=== PATIENT | female | born 1975 | race Caucasian/White ===

== ENCOUNTER → 2019-08-09 11:52 | Outpatient (BNVA) | payer MEDICAID, SELFPAY | PROVIDERS: Family Provider Nurse Practitioner Family; PCP Specialist; Visit Provider Social Worker Clinical | DX: F43.12 Post-traumatic stress disorder, chronic (principal); F33.2 Major depressive disorder, recurrent severe without psychotic features | CPT/HCPCS: 90834 ==

== ENCOUNTER → 2019-09-06 14:25 | Outpatient (BNVA) | payer MEDICAID, SELFPAY | PROVIDERS: Family Provider Specialist; PCP Specialist; Visit Provider Social Worker Clinical | DX: F43.12 Post-traumatic stress disorder, chronic (principal); F33.2 Major depressive disorder, recurrent severe without psychotic features | CPT/HCPCS: 90834 ==

== ENCOUNTER → 2019-11-07 12:30 | Outpatient (BNVA) | payer MEDICAID, SELFPAY | PROVIDERS: Family Provider Specialist; PCP Specialist; Visit Provider Psychiatry & Neurology Psychiatry | DX: F43.12 Post-traumatic stress disorder, chronic (principal); F33.2 Major depressive disorder, recurrent severe without psychotic features; F60.9 Personality disorder, unspecified; F17.200 Nicotine dependence, unspecified, uncomplicated | CPT/HCPCS: 99213 ==

== ENCOUNTER → 2019-12-12 08:38 | Outpatient (BNVA) | payer MEDICAID, SELFPAY | PROVIDERS: Family Provider Specialist; PCP Specialist; Visit Provider Psychiatry & Neurology Psychiatry | DX: F43.12 Post-traumatic stress disorder, chronic (principal); F33.2 Major depressive disorder, recurrent severe without psychotic features; F60.9 Personality disorder, unspecified; F17.200 Nicotine dependence, unspecified, uncomplicated | CPT/HCPCS: 99213 ==

== ENCOUNTER → 2020-01-29 09:36 | Outpatient (BNVA) | payer MEDICAID, SELFPAY | PROVIDERS: Family Provider Specialist; PCP Specialist; Visit Provider Nurse Practitioner Family | DX: Z13.6 Encounter for screening for cardiovascular disorders (principal); Z13.29 Encounter for screening for other suspected endocrine disorder | CPT/HCPCS: 80053; 80061; 84439; 84443 ==

== ENCOUNTER 2020-02-10 09:07 | Outpatient (CLI) | payer MEDICAID, SELFPAY ==
--- NOTE | 2020-02-10 09:30 | MM_ITS ---
WS: [id number] BILATERAL DIGITAL DIAGNOSTIC MAMMOGRAM MAMMOGRAPHY WITH CAD CLINICAL INFORMATION: breast nodule right breast tenderness upper outer quadrant. COMPARISON: None. TECHNIQUE: Bilateral CC, MLO, and ML views. FINDINGS: Scattered fibroglandular densities bilaterally. A few asymmetric densities upper outer right breast. Left breast is unremarkable. Lucent centered calcifications. Ultrasound right breast pending in the area of concern upper outer qu adrant ULTRASOUND BREAST RIGHT TECHNIQUE: Ultrasound right breast focused area of concern. CLINICAL INFORMATION: breast nodule COMPARISON: None. FINDINGS: Ultrasound right breast at the 7:00-900 position. A few dilated ducts. No evidence of pathologic mass or lesion. No lesions to target for biopsy MM/[place] [id number] IMPRESSION: BI-RADS: 2-Benign FOLLOW UP: 1 Year Follow-up Recommend return to annual screening mammography.
--- NOTE | 2020-02-10 10:15 | US_ITS ---
WS: [id number] BILATERAL DIGITAL DIAGNOSTIC MAMMOGRAM MAMMOGRAPHY WITH CAD CLINICAL INFORMATION: breast nodule right breast tenderness upper outer quadrant. COMPARISON: None. TECHNIQUE: Bilateral CC, MLO, and ML views. FINDINGS: Scattered fibroglandular densities bilaterally. A few asymmetric densities upper outer right breast. Left breast is unremarkable. Lucent centered calcifications. Ultrasound right breast pending in the area of concern upper outer qu adrant ULTRASOUND BREAST RIGHT TECHNIQUE: Ultrasound right breast focused area of concern. CLINICAL INFORMATION: breast nodule COMPARISON: None. FINDINGS: Ultrasound right breast at the 7:00-900 position. A few dilated ducts. No evidence of pathologic mass or lesion. No lesions to target for biopsy US/US breast RT limited* [id number] IMPRESSION: BI-RADS: 2-Benign FOLLOW UP: 1 Year Follow-up Recommend return to annual screening mammography.
== END 2020-02-10 09:08 | disposition home or self-care (01) ==
LOC: RADSHAW 09:10
PROVIDERS: PCP Nurse Practitioner Family; Visit Provider Nurse Practitioner Family
DX: N63.11 Unspecified lump in the right breast, upper outer quadrant (principal)
CPT/HCPCS: 76642; 77066

== ENCOUNTER → 2020-03-18 08:10 | Outpatient (BNVA) | payer MEDICAID, SELFPAY | PROVIDERS: PCP Nurse Practitioner Family; Visit Provider Psychiatry & Neurology Psychiatry | DX: F43.12 Post-traumatic stress disorder, chronic (principal); F17.200 Nicotine dependence, unspecified, uncomplicated; F33.2 Major depressive disorder, recurrent severe without psychotic features; F60.9 Personality disorder, unspecified | CPT/HCPCS: 99214 ==

== ENCOUNTER → 2020-04-06 14:26 | Outpatient (BNVA) | payer MEDICAID, SELFPAY | PROVIDERS: PCP Nurse Practitioner Family; Visit Provider Nurse Practitioner Family | DX: R52 Pain, unspecified (principal); R53.83 Other fatigue; E55.9 Vitamin D deficiency, unspecified | CPT/HCPCS: 82306; 85025; 85651; 86140 ==

== ENCOUNTER → 2020-04-15 08:03 | Outpatient (BNVA) | payer MEDICAID, SELFPAY | PROVIDERS: PCP Nurse Practitioner Family; Visit Provider Psychiatry & Neurology Psychiatry | DX: F43.12 Post-traumatic stress disorder, chronic (principal); F33.2 Major depressive disorder, recurrent severe without psychotic features; F60.9 Personality disorder, unspecified; F17.200 Nicotine dependence, unspecified, uncomplicated | CPT/HCPCS: 99213 ==

== ENCOUNTER → 2020-05-22 09:54 | Outpatient (BNVA) | payer MEDICAID, SELFPAY | PROVIDERS: PCP Nurse Practitioner Family; Visit Provider Social Worker Clinical | DX: F33.1 Major depressive disorder, recurrent, moderate (principal); F33.2 Major depressive disorder, recurrent severe without psychotic features; F43.12 Post-traumatic stress disorder, chronic | CPT/HCPCS: 90834 ==

== ENCOUNTER → 2020-05-29 08:15 | Outpatient (BNVA) | payer MEDICAID, SELFPAY | PROVIDERS: PCP Nurse Practitioner Family; Visit Provider Social Worker Clinical | DX: F33.2 Major depressive disorder, recurrent severe without psychotic features (principal) | CPT/HCPCS: 90834 ==

== ENCOUNTER → 2020-06-15 14:45 | Outpatient (BNVA) | payer MEDICAID, SELFPAY | PROVIDERS: PCP Nurse Practitioner Family; Visit Provider Psychiatry & Neurology Psychiatry | DX: F43.12 Post-traumatic stress disorder, chronic (principal); F60.9 Personality disorder, unspecified; F33.2 Major depressive disorder, recurrent severe without psychotic features; F17.200 Nicotine dependence, unspecified, uncomplicated | CPT/HCPCS: 99214 ==

== ENCOUNTER → 2020-09-09 10:00 | Outpatient (BNVA) | payer MEDICAID, SELFPAY | PROVIDERS: PCP Nurse Practitioner Family; Visit Provider Nurse Practitioner Family | DX: R63.5 Abnormal weight gain (principal); R53.83 Other fatigue; R52 Pain, unspecified | CPT/HCPCS: 86140 ==

== ENCOUNTER → 2020-11-10 14:45 | Outpatient (BNVA) | payer MEDICAID, SELFPAY | PROVIDERS: PCP Nurse Practitioner Family; Visit Provider Psychiatry & Neurology Psychiatry | DX: F60.9 Personality disorder, unspecified (principal); F33.2 Major depressive disorder, recurrent severe without psychotic features; F43.12 Post-traumatic stress disorder, chronic; F17.200 Nicotine dependence, unspecified, uncomplicated | CPT/HCPCS: 99214 ==

== ENCOUNTER 2021-01-19 20:46 | Emergency (ER) | payer MEDICAID, SELFPAY ==
[2021-01-19 21:03] VITALS: BP 110/75; PULSE 78; RESP 18; TEMP 36.7; O2SAT 97; BMI 32.2
--- NOTE | 2021-01-19 22:13 | XRR_ITS ---
PROCEDURE INFORMATION: Exam: XR Right Ribs with PA Chest Exam date and time: 01/19/2021 10:13 PM Age: 45 years old Clinical indication: Injury or trauma; Rib area; Blunt trauma (contusions or hematomas); Injury details: Fall in bath tub x 1 week. Lamar a pop in RT side chest tonight; Additional info: Pain TECHNIQUE: Imaging protocol: XR Right ribs with PA chest. Views: 3 views COMPARISON: No relevant prior studies available. FINDINGS: Lungs: Unremarkable. No consolidation. Pleural spaces: Unremarkable. No pleural effusion. No pneumothorax. Heart/Mediastinum: Unremarkable. No cardiomegaly. Bones/joints: Mildly displaced acute anterior right 6th and 7th rib fractures. XR/XR ribs RT mn 3V w CXR1V [id number] IMPRESSION: Acute anterior right 6th and 7th rib fractures.
--- NOTE | 2021-01-19 23:10 | W.ED.FALL ---
HPI - Fall General: Chief Complaint: Fall Stated Complaint: R rib pain for 1 week Time Seen by Provider: 01/19/21 22:54 Source: patient Mode of arrival: ambulatory Limitations: no limitations History of Present Illness: HPI Narrative: Patient is a 45-year-old female who presents to ED today with complaints of right anterior chest pain that occurred approximately a week ago. Patient tells me she was in the bathroom and stood up from the toilet when she became dizzy and fell striking her right ribs on the bathtub. Patient tells me she often gets dizzy so this was not anything abnormal for her. She denies chest pain, shortness of breath, difficulty breathing, or palpitations. No syncope. Did not strike head/LOC. She states she has had pain since the fall however reports today she was in bed and rolled over and heard a pop and is now experiencing severe pain. MD complaint: fall Onset (ago): week(s) Fall from: standing Fall witnessed: no Place fall occurred: home Loss of consciousness: None Prolonged down time: no Symptoms prior to fall: dizziness Location of injury: chest Associated symptoms-after fall: Reports no associated symptoms and chest pain; Denies abdominal pain, confusion, difficulty walking, headache(s), hematuria, lightheadedness, neck pain or vertigo Review of Systems Const: Denies: fever(s) Eyes: Denies: change in vision Card: Reports: chest pain; Denies: palpitations, irregular heart rhythm, edema, lightheadedness, syncope, dyspnea on exertion or orthopnea Resp: Denies: dyspnea, productive cough, non-productive cough, hemoptysis or chest congestion GI: Denies: abdominal pain, nausea, vomiting, diarrhea or change in bowel habits : Denies: flank pain or hematuria Musc: Denies: neck pain, back pain, extremity pain, extremity swelling, joint pain or joint swelling Neuro: Reports: dizziness; Denies: headache(s), numbness in extremities, weakness in extremities, sensory changes, lack of coordination, difficulty walking, frequent falls, vertigo, confusion, behavioral changes, Slurred speech present, difficulty communicating thoughts or seizure-like activity PFS ED PFSH: Social History Smoking and tobacco status: current every day smoker cigarettes Packs smoked per day: 1 Alcohol intake: never Current gender identity: Female Physical Exam Const: COMMON NORMALS: no acute distress, patient oriented x3, no limitations and alert GENERAL APPEARANCE: cooperative NUTRITIONAL APPEARANCE: overweight ORIENTATION/CONSCIOUSNESS: Yes awake, Yes oriented to person, Yes oriented to place and Yes oriented to time HENMT: COMMON NORMALS: normocephalic and atraumatic HEAD & SCALP: normal to inspection, normocephalic and atraumatic FACE & SINUS: normal facial exam Neck/C-Spine: COMMON NORMALS: full ROM CERVICAL SPINE: No Cervical spine tenderness and No Paracervical muscle tenderness Chest: COMMONS NORMALS: normal inspection of the chest OTHER: TTP R anterior mid ribs; no crepitus noted; lungs CTA Resp: COMMON NORMALS: normal respiratory effort and clear to auscultation bilaterally AUSCULTATION: clear to auscultation bilaterally Cardio: COMMON NORMALS: regular rate and regular rhythm RATE: regular rate RHYTHM: regular rhythm GI: COMMON NORMALS: Normal to inspection, nondistended, normoactive bowel sounds present, Soft to palpation, non-tender, No hepatosplenomegaly present and no masses PALPATION: Yes Soft to palpation and Yes No hepatosplenomegaly present Back/Pelvis: COMMON NORMALS: thoracic and lumbar spine normal to inspection, no thoracic nor lumbar tenderness and thoraco-lumbar ROM normal Extremity: COMMON NORMALS: normal to inspection and full ROM GENERAL: Yes normal exam except as noted Neuro: TINA COMA SCALE: document GCS findings Tina coma scale eye opening: Spontaneous [place] coma scale verbal response: Orientated Tina coma scale motor response: Obey commands Tina coma scale total score: 15 COMMON NORMALS: patient oriented x3, CN's II-XII intact bilaterally, moves all extremities, no focal motor deficits, no sensory deficits noted and gait normal SENSORIUM/ORIENTATION: Yes alert, Yes oriented to person, Yes oriented to place and Yes oriented to time Skin: COMMON NORMALS: no rashes or lesions noted GENERAL SKIN EXAM: no rashes or lesions noted TRAUMA: no lacerations or abrasions Course Vital Signs: Vital signs: Vital Signs Temperature 98.1 F 01/19/21 21:03 Pulse Rate 78 01/19/21 21:03 Respiratory Rate 18 01/19/21 21:03 Blood Pressure 110/75 01/19/21 21:03 Pulse Oximetry 97 01/19/21 21:03 MDM - Fall MDM Narrative: Medical decision making narrative: Patient with mildly displaced 6 and 7 right rib fractures. No pneumo. Vital signs are stable. Patient will be given pain medications. Discussed with patient the importance of continued deep inhalations at home to prevent atelectasis and pneumonia. Recommend follow-up with PCP in 3 to 5 days for reevaluation. Return to ED precautions given. Imaging Data^: R ribs/CXR: Radiologist's impression: [address] [address] XRay Report Signed Patient: Angella Tuttle Unit #: [id number] : 1975 Age/Sex: 45 / F ADM Date: 01/19/21 Loc: ER Room/Bed: Attending Dr: Ordering Provider/Ordering MD: Milli Stahl Date of Service: 01/19/21 Procedure(s): XR ribs RT mn 3V w CXR1V [id number] Accession Number(s): [id number] Report Number: [id number] PROCEDURE INFORMATION: Exam: XR Right Ribs with PA Chest Exam date and time: 01/19/2021 10:13 PM Age: 45 years old Clinical indication: Injury or trauma; Rib area; Blunt trauma (contusions or hematomas); Injury details: Fall in bath tub x 1 week. [place] a pop in RT side chest tonight; Additional info: Pain TECHNIQUE: Imaging protocol: XR Right ribs with PA chest. Views: 3 views COMPARISON: No relevant prior studies available. FINDINGS: Lungs: Unremarkable. No consolidation. Pleural spaces: Unremarkable. No pleural effusion. No pneumothorax. Heart/Mediastinum: Unremarkable. No cardiomegaly. Bones/joints: Mildly displaced acute anterior right 6th and 7th rib fractures. XR/XR ribs RT mn 3V w CXR1V [id number] IMPRESSION: Acute anterior right 6th and 7th rib fractures. Dictated By: Fernando Hunter Signed By: Fernando Hunter Signed Date/Time: 01/19/212305 DD/ 04 Discharge Plan Discharge Patient Disposition: Home Clinical Impression: Multiple closed fractures of ribs of right side Qualifiers: Encounter type: initial encounter Qualified Code(s): S22.41XA - Multiple fractures of ribs, right side, initial encounter for closed fracture Condition: Stable Prescriptions: New hydrocodone-acetaminophen 5-325 mg tablet 1 tab PO Q4H PRN (Reason: pain) Qty: 20 RF: 0 No Action albuterol sulfate [ProAir HFA] 90 mcg/actuation HFA aerosol inhaler 2 puff INHALATION QID PRN (Reason: shortness of breath or wheezing) Qty: 18 RF: 3 fluticasone propion-salmeterol [Advair Diskus] 500-50 mcg/dose blister with device 1 inh INHALATION BID Qty: 60 RF: 6 loratadine 10 mg capsule 10 mg PO DAILY Qty: 90 RF: 3 atorvastatin 20 mg tablet 20 mg PO DAILY Qty: 30 RF: 5 doxepin 25 mg capsule 25 mg PO .HS 30 Days Qty: 30 RF: 1 fluoxetine 40 mg capsule 80 mg PO DAILY 30 Days Qty: 60 RF: 1 hydroxyzine pamoate [Vistaril] 25 mg capsule 25 mg PO BID PRN (Reason: anxiety) 30 Days Qty: 60 RF: 1 prazosin 5 mg capsule 10 mg PO .HS 30 Days Qty: 60 RF: 1 ropinirole [Requip] 3 mg tablet 3 mg PO .QHS 30 Days Qty: 30 RF: 1 Discharge Orders: Discharge ED (Routine); Ordered 01/19/21 Ordered By: Milli Stahl Referrals: Sylvia Salcedo, ST[facility] SPECIALIST [Primary Care Provider] - Patient Instructions: Rib Fracture (ED), Opioid Safety Activity Restrictions/Additional Instructions: [facility] is committed to fighting the nationwide opiate epidemic. We are providing ALL patients with information regarding opiate safety. If you received opiate pain medication during your stay or if you received a prescription for opiate pain medication-please review this handout. If not, you may disregard. Thank you. Please follow-up with your primary care provider in 3 to 5 days for worsening or not improving pain. Continue to take deep breaths as much as possible. Coding Level of Care Code ED [employer] Maker for Josr Scott
[2021-01-19 23:35] VITALS: RESP 18
[2021-01-19] MEDS: morphine 4 mg/mL SDV 1 mL IM (23:35)
[2021-01-19] MEDS: ketorolac 60 mg/2 mL INJ IM (23:35)
[2021-01-19 23:36] VITALS: BP 110/61; PULSE 92; RESP 18; O2SAT 94
== END 2021-01-19 23:36 | disposition home or self-care (01) ==
PROVIDERS: Emergency Provider Physician Assistant; PCP Nurse Practitioner Family
DX: S22.41XA Multiple fractures of ribs, right side, initial encounter for closed fracture (principal); F17.210 Nicotine dependence, cigarettes, uncomplicated; W19.XXXA Unspecified fall, initial encounter
CPT/HCPCS: 71101; 96372; 99283; J1885; J2270

== ENCOUNTER → 2021-02-02 10:38 | Outpatient (BNVA) | payer MEDICAID, SELFPAY | PROVIDERS: PCP Nurse Practitioner Family; Visit Provider Psychiatry & Neurology Psychiatry | DX: F33.2 Major depressive disorder, recurrent severe without psychotic features (principal); F43.12 Post-traumatic stress disorder, chronic; F60.9 Personality disorder, unspecified; F17.200 Nicotine dependence, unspecified, uncomplicated | CPT/HCPCS: 99214 ==

== ENCOUNTER → 2021-03-23 12:40 | Outpatient (BNVA) | payer MEDICAID, SELFPAY | PROVIDERS: PCP Nurse Practitioner Family; Visit Provider Psychiatry & Neurology Psychiatry | DX: F43.12 Post-traumatic stress disorder, chronic (principal); F33.2 Major depressive disorder, recurrent severe without psychotic features; F60.9 Personality disorder, unspecified; F17.200 Nicotine dependence, unspecified, uncomplicated | CPT/HCPCS: 99214 ==

== ENCOUNTER 2021-04-01 19:39 | Emergency (ER) | payer MEDICAID, SELFPAY ==
[2021-04-01 20:21] VITALS: BP 112/75; PULSE 64; RESP 16; TEMP 36.8; O2SAT 97; BMI 33.2
[2021-04-01 21:28] VITALS: BP 103/58; PULSE 65; RESP 17; O2SAT 98
--- NOTE | 2021-04-01 21:33 | ED_ITS ---
HPI - Abdominal Pain General: Chief Complaint: Abdominal Pain Stated Complaint: Upper Abd Pain Time Seen by Provider: 04/01/21 21:32 PFSH ED PFSH: Social History Smoking and tobacco status: current every day smoker cigarettes Packs smoked per day: 1 Alcohol intake: never Current gender identity: Female Course Vital Signs: Vital signs: Vital Signs Temperature 98.3 F 04/01/21 20:21 Pulse Rate 65 04/01/21 21:28 Respiratory Rate 17 04/01/21 21:28 Blood Pressure 103/58 04/01/21 21:28 Pulse Oximetry 98 04/01/21 21:28 Discharge Plan Discharge Prescriptions: No Action albuterol sulfate [ProAir HFA] 90 mcg/actuation HFA aerosol inhaler 2 puff INHALATION QID PRN (Reason: shortness of breath or wheezing) Qty: 18 RF: 3 fluticasone propion-salmeterol [Advair Diskus] 500-50 mcg/dose blister with device 1 inh INHALATION BID Qty: 60 RF: 6 tramadol 50 mg tablet 50 mg PO Q8H PRN (Reason: pain) 5 Days Qty: 15 RF: 0 doxepin 25 mg capsule 25 mg PO .HS 30 Days Qty: 30 RF: 1 fluoxetine 40 mg capsule 80 mg PO DAILY 30 Days Qty: 60 RF: 3 prazosin 5 mg capsule 10 mg PO .HS 30 Days Qty: 60 RF: 1 ropinirole [Requip] 3 mg tablet 3 mg PO .QHS 30 Days Qty: 30 RF: 1 quetiapine 50 mg tablet 50 mg PO .qhs 30 Days Qty: 30 RF: 3 atorvastatin 20 mg tablet 20 mg PO DAILY Qty: 30 RF: 5 hydroxyzine pamoate [Vistaril] 25 mg capsule 25 mg PO BID PRN (Reason: anxiety) 30 Days Qty: 60 RF: 1 loratadine 10 mg tablet See Rx Instructions .ROUTE .COMPLEX Qty: 90 RF: 3 hydrocodone-acetaminophen 5-325 mg tablet 1 tab PO Q4H PRN (Reason: pain) Qty: 20 RF: 0 Coding Level of Care Code ED [employer] for Josr Scott
--- NOTE | 2021-04-01 21:36 | W.ED.ABDPA2 ---
HPI - Abdominal Pain General: Chief Complaint: Abdominal Pain Stated Complaint: Upper Abd Pain Time Seen by Provider: 04/01/21 21:32 Source: patient Mode of arrival: ambulatory Limitations: no limitations History of Present Illness: HPI narrative: 45-year-old female states she has been having abdominal pain the last day. States pain is in lower abdomen epigastric and is sharp in nature. She rates the pain a 7 out of 10. She denies any fevers. Denies any vomiting or diarrhea. Denies any worsening improving factors. Denies any chest pain. Associated Symptoms: Denies chills, dysuria and fever(s) Review of Systems Const: Denies: fever(s), chills, body aches or change in appetite Eyes: Denies: blurry vision or eye discomfort ENMT: Denies: throat pain or dental pain Card: Denies: chest pain Resp: Denies: dyspnea GI: Reports: abdominal pain : Denies: dysuria Musc: Denies: neck pain or back pain Skin/Breast: Denies: rash Neuro: Denies: headache(s) Psych: Denies: depression Pascual/Lymph: Denies: easy bruising All/Imm: Denies: urticaria PFSH ED PFSH: Social History Smoking and tobacco status: current every day smoker cigarettes Packs smoked per day: 1 Alcohol intake: never Current gender identity: Female Physical Exam Const: COMMON NORMALS: no acute distress, patient oriented x3 and healthy appearing HENMT: COMMON NORMALS: normocephalic and atraumatic HEAD & SCALP: normocephalic and atraumatic Eye: COMMON NORMALS: Equal, round and reactive pupils present and EOMs intact bilaterally PUPIL: Yes Equal, round and reactive pupils present Neck/C-Spine: COMMON NORMALS: full ROM and supple Chest: COMMONS NORMALS: normal inspection of the chest and normal palpation of entire chest wall Resp: COMMON NORMALS: normal respiratory effort, No retractions, No use of accessory muscles and clear to auscultation bilaterally AUSCULTATION: clear to auscultation bilaterally Cardio: COMMON NORMALS: regular rate, regular rhythm and No murmurs present (Cardio) RATE: regular rate RHYTHM: regular rhythm GI: COMMON NORMALS: Normal to inspection, nondistended, normoactive bowel sounds present, Soft to palpation and no masses PALPATION: Yes Soft to palpation and Yes Tenderness to palpation present (GI) Details: RUQ Extremity: COMMON NORMALS: normal to inspection and full ROM Neuro: COMMON NORMALS: patient oriented x3, moves all extremities and no focal motor deficits Psych: COMMON NORMALS: mental status grossly normal, Normal thought process present and cooperative THOUGHT PROCESS: Normal thought process present Skin: COMMON NORMALS: no rashes or lesions noted and no wounds GENERAL SKIN EXAM: no rashes or lesions noted Course Vital Signs: Vital signs: Vital Signs Temperature 98.8 F 04/02/21 00:17 Pulse Rate 71 04/02/21 00:17 Respiratory Rate 18 04/02/21 00:17 Blood Pressure 102/62 04/02/21 00:17 Pulse Oximetry 98 04/02/21 00:17 MDM - Abdominal Pain MDM Narrative: Medical decision making narrative: Angella presents abdominal pain likely from acute cystitis. Pain is much improved here CT scan here is normal. She has no signs of acute surgical abdomen. Will place her on pain meds along with antibiotics she is to follow-up with PCP and return if worsening. Lab Data: Labs: Lab Results 04/01/21 04/01/21 04/01/21 Range/Units 21:36 21:50 22:00 WBC 16.8 H (4.0-10.0) 10^3/ uL RBC 4.38 (4.1-5.3) 10^6/u L Hgb 14.5 (11.5-15.3) g/dL Hct 44.0 (37.0-47.0) % MCV 100.5 H (81-99) fl MCH 33.1 (28.0-34.0) pg MCHC 33.0 (30.0-36.0) g/dL RDW 13.7 (12.1-15.1) % Plt Count 382 (130-400) 10^3/c mm MPV 10.1 (7.4-10.4) fL Neut % (Auto) 55.2 % Lymph % (Auto) 35.2 % [place] % (Auto) 5.6 % Eos % (Auto) 2.1 % Baso % (Auto) 0.8 % Neut # (Auto) 9.25 H (1.8-7.7) 10^3/u L Lymph # (Auto) 5.9 H (0.8-4.8) 10^3/u L [place] # (Auto) 0.9 (0.2-0.9) 10^3/u L Eos # (Auto) 0.4 (0.0-0.8) 10^3/u L Baso # (Auto) 0.1 (0.0-0.1) 10^3/u L Nucleated RBC % (a uto) 0 % Nucleated RBCs # 0.0 /100WBC Sodium 136 (136-145) mmol/L Potassium 4.3 (3.5-5.1) mmol/L Chloride 102 (98-107) mmol/L Carbon Dioxide 24 (22-29) mmol/L Anion Gap 14.3 (5-19) BUN 9 (6-20) mg/dL Creatinine 0.7 (0.5-0.9) mg/dL GFR Calculation 90.1 (90-130) mL/min Glucose 97 (65-115) mg/dL Calculated Osmolal ity 281 L (285-295) mOsm/k g Calcium 8.7 (8.5-10.5) mg/dL Total Bilirubin 0.2 (0.15-1.2) mg/dL AST 16 (0-32) U/L ALT 20 (0-33) U/L Alkaline Phosphata se 105 (35-105) IU/L Total Protein 7.3 (6.6-8.7) g/dL Albumin 4.2 (3.5-5.2) g/dL Globulin 3.1 (1.3-4.6) g/dL Lipase 24 (13-60) U/L HCG, Qual (Negative) Urine Color Yellow (Yellow) Urine Appearance Sl hazy (CLEAR) Urine pH 5 (5-7) Ur Specific Gravit y 1.020 (1.005-1.030) Urine Protein Neg (Negative) Urine Glucose (UA) Norm (Normal) Urine Ketones Negative (Negative) Urine Blood Neg (Negative) Urine Nitrate Positive H (Negative) Urine Bilirubin 1+ H (Negative) Urine Urobilinogen Norm (Negative) mg/dL Ur Leukocyte Marlena ase Negative (Negative) Urine RBC 0-4 H (0-2) /hpf Urine WBC 0-4 H (0-5) /hpf Ur Squamous Epith Cells 5-10 H (0-5) /hpf Amorphous Sediment Not Reportable Urine Bacteria 4+ H (NONE) /hpf Urine Mucus 1+ /hpf 04/01/21 Range/Units 22:00 WBC (4.0-10.0) 10^3/ uL RBC (4.1-5.3) 10^6/u L Hgb (11.5-15.3) g/dL Hct (37.0-47.0) % MCV (81-99) fl MCH (28.0-34.0) pg MCHC (30.0-36.0) g/dL RDW (12.1-15.1) % Plt Count (130-400) 10^3/c mm MPV (7.4-10.4) fL Neut % (Auto) % Lymph % (Auto) % [place] % (Auto) % Eos % (Auto) % Baso % (Auto) % Neut # (Auto) (1.8-7.7) 10^3/u L Lymph # (Auto) (0.8-4.8) 10^3/u L [place] # (Auto) (0.2-0.9) 10^3/u L Eos # (Auto) (0.0-0.8) 10^3/u L Baso # (Auto) (0.0-0.1) 10^3/u L Nucleated RBC % (a uto) % Nucleated RBCs # /100WBC Sodium (136-145) mmol/L Potassium (3.5-5.1) mmol/L Chloride (98-107) mmol/L Carbon Dioxide (22-29) mmol/L Anion Gap (5-19) BUN (6-20) mg/dL Creatinine (0.5-0.9) mg/dL GFR Calculation (90-130) mL/min Glucose (65-115) mg/dL Calculated Osmolal ity (285-295) mOsm/k g Calcium (8.5-10.5) mg/dL Total Bilirubin (0.15-1.2) mg/dL AST (0-32) U/L ALT (0-33) U/L Alkaline Phosphata se (35-105) IU/L Total Protein (6.6-8.7) g/dL Albumin (3.5-5.2) g/dL Globulin (1.3-4.6) g/dL Lipase (13-60) U/L HCG, Qual Negative (Negative) Urine Color (Yellow) Urine Appearance (CLEAR) Urine pH (5-7) Ur Specific Gravit y (1.005-1.030) Urine Protein (Negative) Urine Glucose (UA) (Normal) Urine Ketones (Negative) Urine Blood (Negative) Urine Nitrate (Negative) Urine Bilirubin (Negative) Urine Urobilinogen (Negative) mg/dL Ur Leukocyte Marlena ase (Negative) Urine RBC (0-2) /hpf Urine WBC (0-5) /hpf Ur Squamous Epith Cells (0-5) /hpf Amorphous Sediment Urine Bacteria (NONE) /hpf Urine Mucus /hpf Imaging Data ^: CT Abd/Pel: Attestation: I personally reviewed and interpreted this imaging study as follows: Radiologist's impression: [facility] [address] [address] Scan Report Signed Patient: Angella Tuttle Unit #: [id number] : 1975 Age/Sex: 45 / F ADM Date: 04/01/21 Loc: ER Room/Bed: Attending Dr: Ordering Provider/Ordering MD: Cecille Luong MD Date of Service: 04/01/21 Procedure(s): CT abdomen pelvis w con* [id number] Accession Number(s): [id number] Report Number: [id number] PROCEDURE INFORMATION: Exam: CT Abdomen And Pelvis With Contrast Exam date and time: 04/01/2021 9:35 PM Age: 45 years old Clinical indication: Abdominal pain; Localized; Right upper quadrant (ruq); Patient HX: Ruq pain. Recent history of 6th/7th right rib fracture. ; Additional info: Abd pain TECHNIQUE: Imaging protocol: Computed tomography of the abdomen and pelvis with contrast. Radiation optimization: All CT scans at this facility use at least one of these dose optimization techniques: automated exposure control; mA and/or kV adjustment per patient size (includes targeted exams where dose is matched to clinical indication); or iterative reconstruction. Contrast material: OMNI 300; Contrast volume: 95 ml; Contrast route: INTRAVENOUS (IV); COMPARISON: US pelvic with transvaginal 01/05/2015 2:02 PM RADIATION DOSE METRICS: Total DLP (mGy-cm): 1634.62 FINDINGS: Lungs: Mild nonspecific interstitial prominence at the lung bases. No consolidative infiltrate. Liver: The liver is unremarkable in appearance. Gallbladder and bile ducts: No calcified gallstones in the gallbladder. No gallbladder wall thickening. No pericholecystic fluid. No biliary dilatation. Pancreas: The pancreas is normal in appearance. No pancreatic duct dilatation. Spleen: The spleen is normal in size and appearance. Adrenal glands: The adrenal glands appear within normal limits. Kidneys and ureters: Less than than 5 mm low-density lesion upper pole right kidney, too small to characterize. Kidneys are otherwise unremarkable. No hydronephrosis. No calculus. Normal bilateral ureters. Stomach and bowel: No acute gastric abnormality demonstrated. The small bowel is unremarkable. No acute abnormality of the colon. Appendix: The appendix is normal in appearance. No evidence of appendicitis. Intraperitoneal space: No pneumoperitoneum. No significant fluid collection. Vasculature: The aorta is atherosclerotic. No aortic aneurysm. Lymph nodes: No pathologically enlarged lymph nodes are demonstrated. Urinary bladder: The urinary bladder is unremarkable in appearance. Reproductive: The uterus is not visualized, consistent with hysterectomy. Bones/joints: Healing right lateral rib fractures. No acute osseous abnormality. No fracture or other acute osseous abnormality. Soft tissues: The soft tissues appear unremarkable. CT/CT abdomen pelvis w con* [id number] IMPRESSION: No acute abnormality demonstrated in the abdomen and pelvis. COMMENTS: Consistent with the [employer]'s Incidental Findings Committee white paper (J [employer] Mónica Radiol 2018): Any incidental renal lesion less than 1 cm or classified as too small to characterize, or any incidental cystic renal lesion characterized as simple-appearing, is likely benign. No follow-up imaging is recommended for these lesions per consensus recommendations based on imaging criteria. Radiation Dose CTDIVOL = (mGy): DLP = 1634.62 (mGy-cm) Dictated By: Sebas Perera MD Signed By: Sebas Perera MD Signed Date/Time: 04/01/212337 DD/ 35 Discharge Plan Discharge Patient Disposition: Home Clinical Impression: Cystitis Abdominal pain Qualifiers: Abdominal location: generalized Qualified Code(s): R10.84 - Generalized abdominal pain Condition: Stable Prescriptions: New hydrocodone-acetaminophen 5-325 mg tablet 1 tab PO Q6H PRN (Reason: pain) Qty: 14 RF: 0 cephalexin 500 mg capsule 500 mg PO TID 7 Days Qty: 21 RF: 0 ondansetron 4 mg tablet,disintegrating 4 mg PO Q6H PRN (Reason: nausea and vomiting) Qty: 14 RF: 0 No Action albuterol sulfate [ProAir HFA] 90 mcg/actuation HFA aerosol inhaler 2 puff INHALATION QID PRN (Reason: shortness of breath or wheezing) Qty: 18 RF: 3 fluticasone propion-salmeterol [Advair Diskus] 500-50 mcg/dose blister with device 1 inh INHALATION BID Qty: 60 RF: 6 tramadol 50 mg tablet 50 mg PO Q8H PRN (Reason: pain) 5 Days Qty: 15 RF: 0 doxepin 25 mg capsule 25 mg PO .HS 30 Days Qty: 30 RF: 1 fluoxetine 40 mg capsule 80 mg PO DAILY 30 Days Qty: 60 RF: 3 prazosin 5 mg capsule 10 mg PO .HS 30 Days Qty: 60 RF: 1 ropinirole [Requip] 3 mg tablet 3 mg PO .QHS 30 Days Qty: 30 RF: 1 quetiapine 50 mg tablet 50 mg PO .qhs 30 Days Qty: 30 RF: 3 atorvastatin 20 mg tablet 20 mg PO DAILY Qty: 30 RF: 5 hydroxyzine pamoate [Vistaril] 25 mg capsule 25 mg PO BID PRN (Reason: anxiety) 30 Days Qty: 60 RF: 1 loratadine 10 mg tablet See Rx Instructions .ROUTE .COMPLEX Qty: 90 RF: 3 hydrocodone-acetaminophen 5-325 mg tablet 1 tab PO Q4H PRN (Reason: pain) Qty: 20 RF: 0 Discharge Orders: Discharge ED (Routine); Ordered 04/01/21 Ordered By: Cecille Luong Discharge Diet: Advance as tolerated Discharge Activity: Resume usual activity Patient Instructions: Urinary Tract Infection in Women (ED), Abdominal Pain (ED), Opioid Safety Coding Level of Care Code 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
[2021-04-01 21:37] VITALS: PULSE 64; RESP 18; O2SAT 98
[2021-04-01 21:43] VITALS: RESP 24
[2021-04-01 21:43] LABS: Basophils # 0.1 10^3/uL (0.0-0.1); Basophils % 0.8 %; Eosinophils # 0.4 10^3/uL (0.0-0.8); Eosinophils % 2.1 %; Hemoglobin 14.5 g/dL (11.5-15.3); Lymphocytes # 5.9 10^3/uL (0.8-4.8); Lymphocytes % 35.2 %; Mean Corpuscular Hemoglobin 33.1 pg (28.0-34.0); Mean Corpuscular Volume 100.5 fl (81-99); Mean Platelet Volume 10.1 fL (7.4-10.4); Monocytes # 0.9 10^3/uL (0.2-0.9); Monocytes % 5.6 %; Neutrophils # 9.25 10^3/uL (1.8-7.7); Neutrophils % 55.2 %; Nucleated Red Blood Cells % 0 %; Platelet Count 382 10^3/cmm (130-400); Red Blood Count 4.38 10^6/uL (4.1-5.3); Red Cell Distribution Width 13.7 % (12.1-15.1); White Blood Count 16.8 10^3/uL (4.0-10.0)
[2021-04-01] MEDS: ondansetron 2 mg/ML SDV 2 mL 4 MG IVP (21:43)
[2021-04-01] MEDS: sodium chloride 0.9% 1,000 ML 999 ML IV (21:43)
[2021-04-01] MEDS: HYDROmorphone 1 mg/mL INJ 1 mL IVP ×2 (21:43→23:36)
[2021-04-01 22:33] LABS: Alanine Aminotransferase 20 U/L (0-33); Albumin Level 4.2 g/dL (3.5-5.2); Alkaline Phosphatase 105 IU/L (35-105); Anion Gap 14.3 (5-19); Aspartate Amino Transferase 16 U/L (0-32); Blood Urea Nitrogen 9 mg/dL (6-20); Calcium 8.7 mg/dL (8.5-10.5); Carbon Dioxide 24 mmol/L (22-29); Chloride 102 mmol/L (98-107); Globulin 3.1 g/dL (1.3-4.6); Glomerular Filtration Rate 90.1 mL/min (90-130); Glucose 97 mg/dL (65-115); HCG, Serum Qual Negative (Negative); Lipase 24 U/L (13-60); Osmolality Calculated 281 mOsm/kg (285-295); Potassium 4.3 mmol/L (3.5-5.1); Sodium 136 mmol/L (136-145); Total Bilirubin 0.2 mg/dL (0.15-1.2); Total Protein 7.3 g/dL (6.6-8.7)
[2021-04-01 22:38] LABS: Add Urine Microscopic? YES; Bilirubin Urine 1+ (Negative); Blood Urine Neg (Negative); Glucose Urine UA Norm (Normal); Ketones Urine Negative (Negative); Leukocyte Esterase Urine Negative (Negative); Nitrate Urine Positive (Negative); Protein Urine Neg (Negative); Urine Appearance SL Hazy (CLEAR); Urine Color Yellow (Yellow); Urobilinogen Urine Norm (Negative); pH Urine 5 (5-7)
[2021-04-01 22:39] LABS: Bacteria Urine 4+ /hpf; Mucus Urine 1+ /hpf; RBC Urine 0-4 /hpf (0-2); WBC Urine 0-4 /hpf (0-5)
[2021-04-01 22:40] LABS: Add Urine Culture? Yes
[2021-04-01] MEDS: iohexol 300 mg/mL 100 mL Btl IV (23:15)
[2021-04-01] MEDS: cefTRIAXone 1,000 MG in sodium chloride 0.9% (plus) 50 ML 100 MG IV (23:36)
[2021-04-02 00:17] VITALS: BP 102/62; PULSE 71; RESP 18; TEMP 37.1; O2SAT 98
== END 2021-04-02 00:15 | disposition home or self-care (01) ==
PROVIDERS: Emergency Provider Emergency Medicine
DX: N30.90 Cystitis, unspecified without hematuria (principal); F17.210 Nicotine dependence, cigarettes, uncomplicated
CPT/HCPCS: 74177; 80053; 81001; 83690; 84703; 85025; 87077; 87086; 87186; 96365; 96375; 96376; 99284; J0696; J1170; J2405; J7030; Q9967

== ENCOUNTER → 2021-09-23 13:35 | Outpatient (BNVA) | payer MEDICAID, SELFPAY | PROVIDERS: PCP Nurse Practitioner Family; Visit Provider Nurse Practitioner Family | DX: R52 Pain, unspecified (principal); R06.02 Shortness of breath | CPT/HCPCS: 87400 ==

== ENCOUNTER → 2021-10-12 15:03 | Outpatient (BNVA) | payer MEDICAID, SELFPAY | PROVIDERS: PCP Nurse Practitioner Family; Visit Provider Psychiatry & Neurology Psychiatry | DX: F33.2 Major depressive disorder, recurrent severe without psychotic features (principal); F43.12 Post-traumatic stress disorder, chronic; F60.9 Personality disorder, unspecified; F17.200 Nicotine dependence, unspecified, uncomplicated | CPT/HCPCS: 99214 ==

== ENCOUNTER → 2022-01-11 13:45 | Outpatient (BNVA) | payer MEDICAID, SELFPAY | PROVIDERS: PCP Nurse Practitioner Family; Visit Provider Psychiatry & Neurology Psychiatry | DX: F33.2 Major depressive disorder, recurrent severe without psychotic features (principal); F43.12 Post-traumatic stress disorder, chronic; F60.9 Personality disorder, unspecified; F17.200 Nicotine dependence, unspecified, uncomplicated | CPT/HCPCS: 99214 ==

== ENCOUNTER → 2022-05-19 10:15 | Outpatient (BNVA) | payer MEDICAID, SELFPAY | PROVIDERS: PCP Nurse Practitioner Family; Visit Provider Nurse Practitioner Family | DX: R10.9 Unspecified abdominal pain (principal); Z87.19 Personal history of other diseases of the digestive system | CPT/HCPCS: 74018 ==

== ENCOUNTER 2022-07-19 11:34 | Emergency (ER) | payer MEDICAID, SELFPAY ==
[2022-07-19 12:00] VITALS: BP 113/78; PULSE 89; RESP 16; TEMP 37.1; O2SAT 96; BMI 31.1
[2022-07-19 13:04] LABS: Add Urine Microscopic? NO; Charge for UA Resulting for Rev
[2022-07-19 13:09] LABS: Bilirubin Urine Neg (Negative); Blood Urine Neg (Negative); Glucose Urine UA Norm (Normal); Ketones Urine Negative (Negative); Leukocyte Esterase Urine Negative (Negative); Nitrate Urine Negative (Negative); Protein Urine Neg (Negative); Urine Appearance Clear (CLEAR); Urine Color Yellow (Yellow); Urobilinogen Urine Norm (Negative); pH Urine 5 (5-7)
[2022-07-19 13:13] LABS: HCG Qualitative Urine. Negative (Negative)
[2022-07-19 13:23] LABS: Basophils # 0.1 10^3/uL (0.0-0.1); Basophils % 0.6 %; Eosinophils # 0.2 10^3/uL (0.0-0.8); Eosinophils % 1.2 %; Hematocrit 47.3 % (37.0-47.0); Hemoglobin 15.9 g/dL (11.5-15.3); Lymphocytes # 2.9 10^3/uL (0.8-4.8); Lymphocytes % 21.7 %; Mean Corpuscular HGB Conc 33.6 g/dL (30.0-36.0); Mean Corpuscular Hemoglobin 34.6 pg (28.0-34.0); Mean Corpuscular Volume 103.1 fl (81-99); Mean Platelet Volume 10.2 fL (7.4-10.4); Monocytes # 0.8 10^3/uL (0.2-0.9); Monocytes % 5.7 %; Neutrophils # 9.45 10^3/uL (1.8-7.7); Neutrophils % 70.1 %; Nucleated Red Blood Cells % 0 %; Platelet Count 298 10^3/cmm (130-400); Red Blood Count 4.59 10^6/uL (4.1-5.3); Red Cell Distribution Width 13.7 % (12.1-15.1); White Blood Count 13.5 10^3/uL (4.0-10.0)
[2022-07-19 13:34] LABS: Slide Review Slide Review Perform
[2022-07-19 13:40] LABS: Alanine Aminotransferase 13 U/L (0-33); Albumin Level 4.5 g/dL (3.5-5.2); Alkaline Phosphatase 104 U/L (35-105); Anion Gap 17.1 (5-19); Aspartate Amino Transferase 14 U/L (0-32); Blood Urea Nitrogen 7 mg/dL (6-20); Calcium 9.5 mg/dL (8.5-10.5); Carbon Dioxide 24 mmol/L (22-29); Chloride 104 mmol/L (98-107); Globulin 3.1 g/dL (1.3-4.6); Glomerular Filtration Rate 89.7 mL/min (90-130); Glucose 88 mg/dL (65-115); Lactate (Lactic Acid level) 2.9 mmol/L (0.5-2.2); Lipase 118 U/L (13-60); Osmolality Calculated 289 mOsm/kg (285-295); Potassium 4.1 mmol/L (3.5-5.1); Sodium 141 mmol/L (136-145); Total Bilirubin 0.2 mg/dL (0.15-1.2); Total Protein 7.6 g/dL (6.6-8.7)
--- NOTE | 2022-07-19 13:50 | CT_ITS ---
WS: [id number] CT ABDOMEN PELVIS TECHNIQUE: Contrast-enhanced CT of the abdomen and pelvis with coronal and sagittal reformatted image s. CLINICAL INFORMATION: gen abd pain and leukocytosis COMPARISON: CT April 01, 2021 DLP: 797.[address] scans at [facility] use at least one of these dose optimization techniques: automated e xposure control; mA and/or kV adjustment per patient size (includes targeted exams where dose is matc hed to clinical indication); or iterative reconstruction. FINDINGS: Tree-in-bud nodularity in the lung bases are nonspecific but likely infectious or inflammatory. Recom mend correlation for pneumonitis. No focal consolidation or pleural fluid. This is similar to April 01, 2021. Mild diffuse fatty infiltration liver. Cholecystectomy clips. Normal portal vein and spleni c vein. Normal spleen. Normal GE junction. Adrenal glands are normal. Normal renal parenchymal enhancement. No hydronephrosis. Normal pancreas. Celiac and SMA are patent. Normal sigmoid colon. No evidence of small or large bowel obstruction. Prior appendectomy. Normal aimee iber abdominal aorta. Mild aortic calcification. No free fluid in the abdomen or pelvis. Slight anter olisthesis L4 on L5. Normal visualized perirectal soft tissues. No visualized perirectal abscess or f luid collection. CT/CT abdomen pelvis w con* [id number] IMPRESSION: 1. No visualized perirectal abscess or fluid collection. No visualized fistulo us tract. 2. Tree-in-bud micronodular infiltrates in the lung bases likely infectious or inflammatory. This is unchanged since April 01, 2021. 3. Prior cholecystectomy. 4. No other acute findings.
--- NOTE | 2022-07-19 13:58 | ED_ITS ---
HPI - Abdominal Pain General: Chief Complaint: Abdominal Pain Stated Complaint: abd pain Time Seen by Provider: 07/19/22 11:45 History of Present Illness: Patient reports she is here today for abdominal pain and rectal pain. She offers that she has had ongoing abdominal and rectal pain for a couple of months now. She reports that she was seen at [facility] and diagnosed with colitis. She reports that her primary care provider had her on medications for hemorrhoids and also constipation but nothing seems to be helping. She reports extreme pain to her rectum whenever she goes to the bathroom or wipes. She reports significant amounts of dark blood mixed in the stool and also when she wipes. She reports generalized abdominal pain. She reports feeling feverish today. She denies any vomiting but has been nauseated with a decreased appetite. She reports that she is being set up for a colonoscopy but that is not until 09 August. She reports that her primary care provider asked her to come to the ER today for her abdominal pain. She denies any possibility of . She reports that she has been having off-and-on chest pain for the past couple of days and feeling somewhat short of breath on occasion. No pain currently in her chest Associated Symptoms: Reports chills, constipation, fever(s), hematochezia and nausea; Denies vomiting Review of Systems Const: Reports: fever(s), chills and body aches Card: Reports: chest pain and palpitations; Denies: irregular heart rhythm Resp: Reports: dyspnea; Denies: productive cough or non-productive cough GI: Reports: abdominal pain, nausea, constipation, pain on defecation, rectal pain and hematochezia; Denies: vomiting [facility] PFSH: Social History Smoking and tobacco status: current every day smoker cigarettes Packs smoked per day: 1 Alcohol intake: never Current gender identity: Female Physical Exam Const: COMMON NORMALS: no acute distress, patient oriented x3 and alert Neck/C-Spine: COMMON NORMALS: no JVD Resp: COMMON NORMALS: normal respiratory effort, No use of accessory muscles and clear to auscultation bilaterally AUSCULTATION: clear to auscultation bilaterally Cardio: COMMON NORMALS: no JVD, regular rate, regular rhythm, S1 normal heart sound present, S2 normal heart sound present and No murmurs present (Cardio) RATE: regular rate RHYTHM: regular rhythm HEART SOUNDS: S1 normal heart sound present and S2 normal heart sound present GI: INSPECTION: Yes normal to inspection AUSCULTATION: Yes normoactive bowel sounds PALPATION: Yes Tenderness to palpation present (GI) Details: LLQ, RLQ, LUQ and RUQ : BLADDER/KIDNEY EXAM: Yes CVA tenderness on the right and on the left Back/Pelvis: GENERAL BACK: Yes CVA tenderness Neuro: COMMON NORMALS: patient oriented x3 SENSORIUM/ORIENTATION: Yes alert Course Vital Signs: Vital signs: Vital Signs Temperature 98.7 F 07/19/22 12:00 Pulse Rate 89 07/19/22 12:00 Respiratory Rate 16 07/19/22 12:00 Blood Pressure 113/78 07/19/22 12:00 Pulse Oximetry 96 07/19/22 12:00 Oxygen Delivery Me thod 07/19/22 12:00 MDM - Abdominal Pain Medical Decision Making Consider colitis consider rectal abscess consider hemorrhoid consider GI bleed I discussed this case with Dr. Pérez. He agreed with hydrating the patient and checking occult blood stool and then discharging the patient to follow-up with already scheduled colonoscopy. Patient is unable to provide stool sample and unable to tolerate digital rectal examination to obtain stool sample. Patient wishes to be discharged to home to provide stool sample at home and take to her primary care provider. Patient is agreeable to following up with primary care provider this week. She reports that she is feeling significantly improved after her IV fluids today. She agrees to continue and keep her appointment for her colonoscopy. She agrees that she will return to the ER for any new or worsening symptoms. Lab Data 07/19/22 13:15 07/19/22 13:15 Labs/Radiology: Radiology Impressions Abdomen/Pelvis CT 07/19/22 13:50 IMPRESSION: 1. No visualized perirectal abscess or fluid collection. No visualized fistulous tract. 2. Tree-in-bud micronodular infiltrates in the lung bases likely infectious or inflammatory. This is unchanged since April 01, 2021. 3. Prior cholecystectomy. 4. No other acute findings. Laboratory Results WBC 13.5 10^3/uL (4.0-10.0) H 07/19/22 13:15 RBC 4.59 10^6/uL (4.1-5.3) 07/19/22 13:15 Hgb 15.9 g/dL (11.5-15.3) H 07/19/22 13:15 Hct 47.3 % (37.0-47.0) H 07/19/22 13:15 MCV 103.1 fl (81-99) H 07/19/22 13:15 MCH 34.6 pg (28.0-34.0) H 07/19/22 13:15 MCHC 33.6 g/dL (30.0-36.0) 07/19/22 13:15 RDW 13.7 % (12.1-15.1) 07/19/22 13:15 Plt Count 298 10^3/cmm (130-400) 07/19/22 13:15 MPV 10.2 fL (7.4-10.4) 07/19/22 13:15 Neut % (Auto) 70.1 % 07/19/22 13:15 Lymph % (Auto) 21.7 % 07/19/22 13:15 [place] % (Auto) 5.7 % 07/19/22 13:15 Eos % (Auto) 1.2 % 07/19/22 13:15 Baso % (Auto) 0.6 % 07/19/22 13:15 Neut # (Auto) 9.45 10^3/uL (1.8-7.7) H 07/19/22 13:15 Lymph # (Auto) 2.9 10^3/uL (0.8-4.8) 07/19/22 13:15 [place] # (Auto) 0.8 10^3/uL (0.2-0.9) 07/19/22 13:15 Eos # (Auto) 0.2 10^3/uL (0.0-0.8) 07/19/22 13:15 Baso # (Auto) 0.1 10^3/uL (0.0-0.1) 07/19/22 13:15 Nucleated RBC % (auto) 0 % 07/19/22 13:15 Nucleated RBCs # 0.0 /100WBC 07/19/22 13:15 Sodium 141 mmol/L (136-145) 07/19/22 13:15 Potassium 4.1 mmol/L (3.5-5.1) 07/19/22 13:15 Chloride 104 mmol/L (98-107) 07/19/22 13:15 Carbon Dioxide 24 mmol/L (22-29) 07/19/22 13:15 Anion Gap 17.1 (5-19) 07/19/22 13:15 BUN 7 mg/dL (6-20) 07/19/22 13:15 Creatinine 0.7 mg/dL (0.5-0.9) 07/19/22 13:15 GFR Calculation 89.7 mL/min (90-130) L 07/19/22 13:15 Glucose 88 mg/dL (65-115) 07/19/22 13:15 Calculated Osmolality 289 mOsm/kg (285-295) 07/19/22 13:15 Lactate 2.9 mmol/L (0.5-2.2) H 07/19/22 13:15 Calcium 9.5 mg/dL (8.5-10.5) 07/19/22 13:15 Total Bilirubin 0.2 mg/dL (0.15-1.2) 07/19/22 13:15 AST 14 U/L (0-32) 07/19/22 13:15 ALT 13 U/L (0-33) 07/19/22 13:15 Alkaline Phosphatase 104 U/L (35-105) 07/19/22 13:15 Troponin T Gen 5 ng/L 6 ng/L (0-10) 07/19/22 13:15 Total Protein 7.6 g/dL (6.6-8.7) 07/19/22 13:15 Albumin 4.5 g/dL (3.5-5.2) 07/19/22 13:15 Globulin 3.1 g/dL (1.3-4.6) 07/19/22 13:15 Lipase 118 U/L (13-60) H 07/19/22 13:15 HCG, Qual Negative (Negative) 07/19/22 12:56 Urine Color Yellow (Yellow) 07/19/22 12:56 Urine Appearance Clear (CLEAR) 07/19/22 12:56 Urine pH 5 (5-7) 07/19/22 12:56 Ur Specific Lafe 1.020 (1.005-1.030) 07/19/22 12:56 Urine Protein Neg (Negative) 07/19/22 12:56 Urine Glucose (UA) Norm (Normal) 07/19/22 12:56 Urine Ketones Negative (Negative) 07/19/22 12:56 Urine Blood Neg (Negative) 07/19/22 12:56 Urine Nitrate Negative (Negative) 07/19/22 12:56 Urine Bilirubin Neg (Negative) 07/19/22 12:56 Urine Urobilinogen Norm mg/dL (Negative) 07/19/22 12:56 Ur Leukocyte Esterase Negative (Negative) 07/19/22 12:56 Discharge Plan Discharge Condition: Stable Prescriptions: No Action fluoxetine 40 mg capsule 80 mg PO DAILY 30 Days Qty: 60 3RF hydroxyzine pamoate [Vistaril] 25 mg capsule 25 mg PO BID PRN (Reason: anxiety) 30 Days Qty: 60 3RF albuterol sulfate [ProAir HFA] 90 mcg/actuation HFA aerosol inhaler See Rx Instructions .ROUTE .COMPLEX Qty: 8.5 3RF Dose Instruction: INHALE TWO (2) PUFFS BY MOUTH 4 TIMES DAILY NEEDED FOR SHORTNESS OF BREATH OR WHEEZING Rx Instructions: INHALE TWO (2) PUFFS BY MOUTH 4 TIMES DAILY NEEDED FOR SHORTNESS OF BREATH OR WHEEZING fluticasone propion-salmeterol [Advair Diskus] 500-50 mcg/dose blister with device 1 inh INHALATION BID Qty: 60 6RF loratadine 10 mg tablet See Rx Instructions .ROUTE .COMPLEX Qty: 90 3RF Dose Instruction: TAKE ONE TABLET BY MOUTH ONCE DAILY Rx Instructions: TAKE ONE TABLET BY MOUTH ONCE DAILY doxepin 25 mg capsule 25 mg PO BEDTIME ropinirole 3 mg tablet 3 mg PO BEDTIME prazosin 5 mg capsule 10 mg PO BEDTIME Miralax 17 gram/dose powder 17 g PO BID quetiapine 50 mg tablet 50 mg PO BEDTIME Rx Instructions: may take a whole or half tab po hs Referrals: Sylvia Salcedo NP [Primary Care Provider] - Coding Level of Care Code ED Traffic Survey Technician for Chg Fwd Exam Detailed
[2022-07-19 14:08] LABS: Troponin T (5th) Once 6 ng/L (0-10)
[2022-07-19] MEDS: iohexol 350 mg/mL 500 mL Btl (per mL) IV (14:46)
--- NOTE | 2022-07-19 14:50 | PC.NURSE ---
Patient now under this nurse's care.
--- NOTE | 2022-07-19 16:02 | ECG_ITS ---
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 Measurements Intervals [place] Rate: 57 P: 49 [place]: 162 QRS: 29 QRSD: 86 T: 49 QT: 417 QTc: 409 Interpretive Statements SINUS BRADYCARDIA No previous ECG available for comparison Electronically Signed On 07-20-2022 0:04:39 PER DIEM REGISTERED NURSE by Jerzy Barnes M.D. [email or web address]
[2022-07-19] MEDS: sodium chloride 0.9% 1,000 ML 999 ML IV ×2 (16:57→18:14)
== END 2022-07-19 18:30 | disposition home or self-care (01) ==
PROVIDERS: Emergency Medicine; Emergency Provider Nurse Practitioner Family; PCP Nurse Practitioner Family
DX: R10.9 Unspecified abdominal pain (principal); K62.89 Other specified diseases of anus and rectum; F17.210 Nicotine dependence, cigarettes, uncomplicated
CPT/HCPCS: 74177; 80053; 81003; 81025; 83605; 83690; 84484; 85025; 93005; 96360; 96361; 99285; J7030; Q9967

== ENCOUNTER 2022-08-10 14:09 | Emergency (ER) | payer MEDICAID, SELFPAY ==
[2022-08-10 14:17] VITALS: BP 103/70; PULSE 84; RESP 18; TEMP 36.6; O2SAT 97; BMI 30.9
--- NOTE | 2022-08-10 14:39 | ED_ITS ---
HPI - GI Bleed General: Chief complaint: General Medical Stated complaint: anal bleeding Time Seen by Provider: 08/10/22 14:31 Source: patient Mode of arrival: ambulatory Limitations: no limitations History of Present Illness: Patient is a 46-year-old female presents to ED today with a complaint of rectal bleeding and abdominal pain. She states symptoms been present over the past 3 months. Patient complains of darker red blood mixed in with her stool and in the water and states when she wipes she will notice bright red blood. Patient had an appointment with Dr. Theodore yesterday however this appointment got canceled and is now rescheduled for next week. He states she came into the ED today because over the past 2 to 3 days she has been having more blood in her stool. Patient was seen at our facility a few weeks ago for same symptoms and had a negative CT scan. Rectal exam could not be performed as it was not tolerated by patient. She was discharged home with Hemoccult cards and states she brought 3 of these cards to her PCP which tested them and all tested negative for blood. Patient is not having any vomiting. She states she is passing stool and gas normally. No known family history of colon cancer. MD complaint: blood on toilet paper and other Onset (ago): month(s) Pain Consistency: constant Severity: moderate Relieving factors: none Exacerbating factors: bowel movement Associated symptoms: Reports abdominal pain; Denies chills, fever(s), headache(s), malaise, nausea, rash or vomiting Treatments Prior to Arrival: none Review of Systems Const: Denies: fever(s), chills, body aches, fatigue or malaise Card: Denies: chest pain Resp: Denies: dyspnea GI: Reports: abdominal pain, change in bowel habits, rectal pain and hematochezia; Denies: nausea, vomiting, hematemesis, melena or mucus in stool : Denies: flank pain, dysuria or hematuria Musc: Denies: neck pain, back pain, extremity pain or joint pain Skin/Breast: Denies: rash Neuro: Denies: headache(s), numbness in extremities, weakness in extremities, sensory changes or dizziness PFS ED PFSH: Social History Smoking and tobacco status: current every day smoker cigarettes Packs smoked per day: 1 Alcohol intake: never Current gender identity: Female Physical Exam Const: COMMON NORMALS: no acute distress, patient oriented x3, no limitations and alert HENMT: COMMON NORMALS: normocephalic and atraumatic HEAD & SCALP: normocephalic and atraumatic Resp: COMMON NORMALS: normal respiratory effort and clear to auscultation bilaterally AUSCULTATION: clear to auscultation bilaterally Cardio: COMMON NORMALS: regular rate and regular rhythm RATE: regular rate RHYTHM: regular rhythm GI: COMMON NORMALS: Normal to inspection, nondistended, normoactive bowel sounds present, Soft to palpation, No hepatosplenomegaly present and no masses INSPECTION: Yes normal to inspection AUSCULTATION: Yes normoactive bowel sounds PALPATION: Yes Soft to palpation, Yes Tenderness to palpation present (GI) (diffusely but mainly to RLQ, LLQ; non-surgical exam), No Guarding due to palpation present (GI), No Rigid due to palpation and Yes No hepatosplenomegaly present RECTAL EXAM: visual inspection normal, normal sphincter tone, heme positive stool, No External hemorrhoid(s) present and No Internal hemorrhoid(s) present : COMMON NORMALS: Yes no CVA tenderness BLADDER/KIDNEY EXAM: Yes no CVA tenderness Back/Pelvis: COMMON NORMALS: no CVA tenderness Extremity: GENERAL: Yes normal exam except as noted Neuro: TINA COMA SCALE: document GCS findings [place] coma scale eye opening: Spontaneous [place] coma scale verbal response: Orientated Tina coma scale motor response: Obey commands Tina coma scale total score: 15 COMMON NORMALS: patient oriented x3, moves all extremities, no focal motor deficits and no sensory deficits noted SENSORIUM/ORIENTATION: Yes alert Skin: COMMON NORMALS: no rashes or lesions noted GENERAL SKIN EXAM: no rashes or lesions noted Course Vital Signs: Vital signs: Vital Signs Temperature 98 F 08/10/22 14:17 Pulse Rate 84 08/10/22 14:17 Respiratory Rate 18 08/10/22 14:17 Blood Pressure 103/70 08/10/22 14:17 Pulse Oximetry 97 08/10/22 14:17 Oxygen Delivery Me thod 08/10/22 14:17 MDM - GI Bleed Medical Decision Making Patient did have a positive hemoccult exam today. Her vital signs are stable. White count today is 14.4. It was 13.5 three weeks ago so I feel this is probably an insignificant change. Hemoglobin today is 14.5. Patient had a normal CT a few weeks ago. 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 She states her visit today was mainly because of the increased bleeding. She does have an appointment with Dr. Theodore scheduled for next week to go over the need for colonoscopy. I think this is an acceptable plan for patient at this time. She was given strict return ED precautions. Lab Data 08/10/22 15:40 08/10/22 15:40 Laboratory Results WBC 14.4 10^3/uL (4.0-10.0) H 08/10/22 15:40 RBC 4.23 10^6/uL (4.1-5.3) 08/10/22 15:40 Hgb 14.5 g/dL (11.5-15.3) 08/10/22 15:40 Hct 42.9 % (37.0-47.0) 08/10/22 15:40 MCV 101.4 fl (81-99) H 08/10/22 15:40 MCH 34.3 pg (28.0-34.0) H 08/10/22 15:40 MCHC 33.8 g/dL (30.0-36.0) 08/10/22 15:40 RDW 13.2 % (12.1-15.1) 08/10/22 15:40 Plt Count 300 10^3/cmm (130-400) 08/10/22 15:40 MPV 9.9 fL (7.4-10.4) 08/10/22 15:40 Neut % (Auto) 65.9 % 08/10/22 15:40 Lymph % (Auto) 27.3 % 08/10/22 15:40 [place] % (Auto) 4.5 % 08/10/22 15:40 Eos % (Auto) 1.0 % 08/10/22 15:40 Baso % (Auto) 0.6 % 08/10/22 15:40 Neut # (Auto) 9.49 10^3/uL (1.8-7.7) H 08/10/22 15:40 Lymph # (Auto) 3.9 10^3/uL (0.8-4.8) 08/10/22 15:40 [place] # (Auto) 0.6 10^3/uL (0.2-0.9) 08/10/22 15:40 Eos # (Auto) 0.2 10^3/uL (0.0-0.8) 08/10/22 15:40 Baso # (Auto) 0.1 10^3/uL (0.0-0.1) 08/10/22 15:40 Nucleated RBC % (auto) 0 % 08/10/22 15:40 Nucleated RBCs # 0.0 /100WBC 08/10/22 15:40 Sodium 138 mmol/L (136-145) 08/10/22 15:40 Potassium 4.0 mmol/L (3.5-5.1) 08/10/22 15:40 Chloride 101 mmol/L (98-107) 08/10/22 15:40 Carbon Dioxide 24 mmol/L (22-29) 08/10/22 15:40 Anion Gap 17.0 (5-19) 08/10/22 15:40 BUN 7 mg/dL (6-20) 08/10/22 15:40 Creatinine 0.7 mg/dL (0.5-0.9) 08/10/22 15:40 GFR Calculation 89.7 mL/min (90-130) L 08/10/22 15:40 Glucose 106 mg/dL (65-115) 08/10/22 15:40 Calculated Osmolality 284 mOsm/kg (285-295) L 08/10/22 15:40 Calcium 9.1 mg/dL (8.5-10.5) 08/10/22 15:40 Total Bilirubin 0.2 mg/dL (0.15-1.2) 08/10/22 15:40 AST 16 U/L (0-32) 08/10/22 15:40 ALT 26 U/L (0-33) 08/10/22 15:40 Alkaline Phosphatase 93 U/L (35-105) 08/10/22 15:40 Total Protein 7.0 g/dL (6.6-8.7) 08/10/22 15:40 Albumin 4.3 g/dL (3.5-5.2) 08/10/22 15:40 Globulin 2.7 g/dL (1.3-4.6) 08/10/22 15:40 Discharge Plan Discharge Patient Disposition: Home Clinical Impression: Gastrointestinal bleed Qualifiers: GI bleed type/associated pathology: unspecified gastrointestinal hemorrhage type Qualified Code(s): K92.2 - Gastrointestinal hemorrhage, unspecified Condition: Stable Prescriptions: New ondansetron 4 mg tablet,disintegrating 4 mg PO Q8H PRN (Reason: nausea and vomiting) Qty: 14 0RF No Action fluoxetine 40 mg capsule 80 mg PO DAILY 30 Days Qty: 60 3RF hydroxyzine pamoate [Vistaril] 25 mg capsule 25 mg PO BID PRN (Reason: anxiety) 30 Days Qty: 60 3RF fluticasone propion-salmeterol [Advair Diskus] 500-50 mcg/dose blister with device 1 inh INHALATION BID Qty: 60 6RF doxepin 25 mg capsule 25 mg PO BEDTIME ropinirole 3 mg tablet 3 mg PO BEDTIME prazosin 5 mg capsule 10 mg PO BEDTIME quetiapine 50 mg tablet 50 mg PO BEDTIME Rx Instructions: may take a whole or half tab po hs polyethylene glycol 3350 17 gram/dose powder 17 g PO DAILY Lactaid Extra Strength 4,500 unit Tablet 4,500 unit PO QID Rx Instructions: administer with meals and/or snacks ProAir HFA 90 mcg/actuation HFA aerosol inhaler 2 puff inhalation Q4H PRN (Reason: Shortness Of Breath Or Wheezing) loratadine 10 mg tablet 10 mg PO DAILY Discharge Orders: Discharge ED (Routine); Ordered 08/10/22 Ordered By: Milli Stahl Referrals: Sylvia Salcedo NP [Primary Care Provider] - Coding Level of Care Code ED Activity Aide for Chg Fwd Exam Comprehensive
[2022-08-10 15:46] LABS: Basophils # 0.1 10^3/uL (0.0-0.1); Basophils % 0.6 %; Eosinophils # 0.2 10^3/uL (0.0-0.8); Hematocrit 42.9 % (37.0-47.0); Hemoglobin 14.5 g/dL (11.5-15.3); Lymphocytes # 3.9 10^3/uL (0.8-4.8); Lymphocytes % 27.3 %; Mean Corpuscular HGB Conc 33.8 g/dL (30.0-36.0); Mean Corpuscular Hemoglobin 34.3 pg (28.0-34.0); Mean Corpuscular Volume 101.4 fl (81-99); Mean Platelet Volume 9.9 fL (7.4-10.4); Monocytes # 0.6 10^3/uL (0.2-0.9); Monocytes % 4.5 %; Neutrophils # 9.49 10^3/uL (1.8-7.7); Neutrophils % 65.9 %; Nucleated Red Blood Cells % 0 %; Platelet Count 300 10^3/cmm (130-400); Red Blood Count 4.23 10^6/uL (4.1-5.3); Red Cell Distribution Width 13.2 % (12.1-15.1); White Blood Count 14.4 10^3/uL (4.0-10.0)
[2022-08-10 16:03] LABS: Alanine Aminotransferase 26 U/L (0-33); Albumin Level 4.3 g/dL (3.5-5.2); Alkaline Phosphatase 93 U/L (35-105); Aspartate Amino Transferase 16 U/L (0-32); Blood Urea Nitrogen 7 mg/dL (6-20); Calcium 9.1 mg/dL (8.5-10.5); Carbon Dioxide 24 mmol/L (22-29); Chloride 101 mmol/L (98-107); Globulin 2.7 g/dL (1.3-4.6); Glomerular Filtration Rate 89.7 mL/min (90-130); Glucose 106 mg/dL (65-115); Osmolality Calculated 284 mOsm/kg (285-295); Sodium 138 mmol/L (136-145); Total Bilirubin 0.2 mg/dL (0.15-1.2)
== END 2022-08-10 16:25 | disposition home or self-care (01) ==
PROVIDERS: Emergency Provider Physician Assistant; PCP Nurse Practitioner Family
DX: K92.2 Gastrointestinal hemorrhage, unspecified (principal); F17.210 Nicotine dependence, cigarettes, uncomplicated
CPT/HCPCS: 36415; 80053; 85025; 99283

== ENCOUNTER → 2022-08-18 12:50 | Outpatient (BNVA) | payer MEDICAID, SELFPAY | PROVIDERS: PCP Nurse Practitioner Family; Visit Provider Surgery | DX: R10.9 Unspecified abdominal pain (principal); K62.89 Other specified diseases of anus and rectum; K62.5 Hemorrhage of anus and rectum | CPT/HCPCS: 99203 ==

== ENCOUNTER 2022-09-07 07:23 | Day surgery (SDC) | payer MEDICAID, SELFPAY ==
[2022-09-05 08:51] VITALS: BMI 30.7
[2022-09-07 07:38] VITALS: BP 128/82; PULSE 76; RESP 18; TEMP 36.4; O2SAT 96
[2022-09-07] MEDS: sodium chloride 0.9% 1,000 ML 30 ML IV (07:54)
--- NOTE | 2022-09-07 08:41 | ANES.PREANE2 ---
Pre-Anesthetic Assessment Height/Weight: Height 1.52 m Weight 71.214 kg Temp Pulse Resp BP Pulse Ox O2 Del Method 97.6 F 76 18 128/82 96 09/07/22 07:38 09/07/22 07:38 09/07/22 07:38 09/07/22 07:38 09/07/22 07:38 09/07/22 07:38 Preop Diagnosis: Abd pain, melana, hematachezia Operation Date: 09/07/22 09:00 Proposed Procedures p 81233 EGD 23594 Colon K62.5,R10.9(Not Applicable) - Feliciano Theodore DO s Colonoscopy(Not Applicable) - Feliciano Theodore DO Was Beta Lilian taken within 24 hours: N/A Was Clonidine taken within 24 hours: N/A Last intake: Intake Last Liquid Date 09/06/22 Last Liquid Time 21:00 Last Solid Date 09/05/22 Last Solid Time 21:00 Social Tobacco frequent marijuana Exam alert, oriented x 3, clear to auscultation bilaterally and regular rate & rhythm Airway Submandibular: within normal limits Cervical ROM: within normal limits Mallampati: Class II Dentition: chipped Comments: Comments: poor dentition History/ROS No significant history except as noted and No significant complaints Pulmonary Asthma CV/HEM None reported None reported Hepatic None reported GI Gastroesophageal Reflux Disease Metabolic None reported Musc/skel None reported Neuropsych Seizure Anesthetic Plan ASA status: 3 Anesthesia: Anesthesia Evaluation and MAC Risk of > 500 ml blood loss (7ml/kg in children): No Medications/Allergies Home Medications Medication Instructions Recorded Confirmed Last Taken Type fluticasone 500 mcg-salmeterol 50 1 inh inhalation BID #60 ea 11/01/21 09/05/22 09/05/22 Rx mcg/dose blistr powdr for inhalation (Advair Diskus) fluoxetine 40 mg capsule 80 mg PO DAILY 30 days #60 caps 01/12/22 09/05/22 09/06/22 Rx hydroxyzine pamoate 25 mg capsule 25 mg PO BID PRN anxiety 30 days 01/12/22 09/05/22 09/06/22 Rx (Vistaril) #60 caps doxepin 25 mg capsule 25 mg PO BEDTIME 07/19/22 09/05/22 09/06/22 History prazosin 5 mg capsule 10 mg PO BEDTIME 1209/05/22 09/06/22 History quetiapine 50 mg tablet 50 mg PO BEDTIME 07/19/22 09/05/22 09/06/22 History ropinirole 3 mg tablet 3 mg PO BEDTIME 07/19/22 09/05/22 09/06/22 History albuterol sulfate 90 mcg/actuation 2 puff inhalation Q4H PRN 08/10/22 09/05/22 09/05/22 History aerosol inhaler (ProAir HFA) Shortness Of Breath Or Wheezing lactase 4,500 unit tablet 4,500 unit PO QID 08/10/22 09/07/22 09/03/22 History loratadine 10 mg tablet 10 mg PO DAILY 08/10/22 09/05/22 09/06/22 History ondansetron 4 mg disintegrating 4 mg PO Q8H PRN nausea and 08/10/22 09/07/22 2 Weeks Ago Rx tablet vomiting #14 tabs ~08/24/22 Allergies Allergy/AdvReac Type Severity Reaction Status Date / Time Penicillins Allergy Severe Sweeling, Verified 09/07/22 07:39 rash, can't breathe buspirone Allergy ALGY-Difficulty Verified 09/07/22 07:39 Breathing lactose Allergy Unknown Verified 09/07/22 07:39 Current Medications Generic Name Dose Route Start Last Admin Trade Name Freq PRN Reason Stop Dose Admin Sodium Chloride 1,000 mls @ 30 mls/hr 09/07/22 07:30 09/07/22 07:54 Sodium Chloride 0.9% IV 09/08/22 07:29 30 mls/hr .Q24H TOBI Administration PFSH Anesthesia Surgical History History of tonsillectomy and adenoidectomy Hx of appendectomy 2000 Hx of cholecystectomy Hx of hysterectomy 2002 Social History Smoking and tobacco status: current every day smoker cigarettes Packs smoked per day: 1 Alcohol intake: never Current gender identity: Female Data Anesthesia Cardiac Studies: No Data to Display
--- NOTE | 2022-09-07 09:20 | W.PM.OPSUD ---
Surgery/Procedure H&P Update DATE OF PROCEDURE: September 07, 2022 DATE H&P PERFORMED: 08/18/22 PREOP DIAGNOSIS: Abd pain, melana, hematachezia PLANNED PROCEDURE: Operation Date: 09/07/22 09:00 Proposed Procedures p 63543 EGD 71111 Colon K62.5,R10.9(Not Applicable) - DO levar Jenkins Colonoscopy(Not Applicable) - Feliciano Theodore DO
[2022-09-07 09:54] VITALS: BP 88/62; PULSE 71; RESP 20; TEMP 36.1; O2SAT 92
[2022-09-07 10:03] VITALS: BP 94/67; PULSE 63; RESP 17; O2SAT 97
[2022-09-07 10:10] VITALS: BP 96/71; PULSE 68; RESP 17; TEMP 36.1; O2SAT 96
--- NOTE | 2022-09-07 14:09 | ANE.PACU2 ---
Inpatient post-anesthesia follow up: Airway intact: Yes Vital signs: Temperature 97.0 F Pulse Rate 68 Respiratory Rate 17 Blood Pressure 96/71 Pulse Oximetry 96 Oxygen Delivery Me thod Room Air Oxygen Flow Rate Fraction of Inspir ed Oxygen Hydration adequate: Yes Nausea and vomiting: No Pain level: 2 Mental status: Baseline
== END 2022-09-07 10:22 | disposition home or self-care (01) ==
PROVIDERS: PCP Nurse Practitioner Family; Visit Provider Surgery
PROC: 0DJ08ZZ Inspection of Upper Intestinal Tract, Via Natural or Artificial Opening Endoscopic (ICD-10-PCS; CPT 43235; principal; 2022-09-07 09:00)
PROC: 0DJD8ZZ Inspection of Lower Intestinal Tract, Via Natural or Artificial Opening Endoscopic (ICD-10-PCS; CPT 45378; 2022-09-07 09:00)
DX: K62.5 Hemorrhage of anus and rectum (principal); R10.9 Unspecified abdominal pain; K29.50 Unspecified chronic gastritis without bleeding; B96.81 Helicobacter pylori [H. pylori] as the cause of diseases classified elsewhere; J45.909 Unspecified asthma, uncomplicated; K21.9 Gastro-esophageal reflux disease without esophagitis; F17.210 Nicotine dependence, cigarettes, uncomplicated
CPT/HCPCS: 43239; 45378; 88305; 88342; J2704; J7030

== ENCOUNTER → 2022-09-20 10:05 | Outpatient (BNVA) | payer MEDICAID, SELFPAY | PROVIDERS: PCP Nurse Practitioner Family; Visit Provider Surgery | DX: Z51.89 Encounter for other specified aftercare (principal); K29.70 Gastritis, unspecified, without bleeding; B96.81 Helicobacter pylori [H. pylori] as the cause of diseases classified elsewhere; Z90.49 Acquired absence of other specified parts of digestive tract | CPT/HCPCS: 99213 ==

== ENCOUNTER → 2022-11-08 09:58 | Outpatient (BNVA) | payer MEDICAID, SELFPAY | PROVIDERS: PCP Nurse Practitioner Family; Visit Provider Surgery | DX: K92.1 Melena (principal); R10.9 Unspecified abdominal pain; K62.5 Hemorrhage of anus and rectum; K62.89 Other specified diseases of anus and rectum | CPT/HCPCS: 99213 ==

== ENCOUNTER 2022-11-09 12:55 | Outpatient (CLI) | payer MEDICAID, SELFPAY | END 2022-11-09 12:56 | disposition home or self-care (01) | LOC: LAB 12:57 | PROVIDERS: PCP Nurse Practitioner Family; Visit Provider Surgery | DX: R10.9 Unspecified abdominal pain (principal) | CPT/HCPCS: 87338 ==

== ENCOUNTER 2022-11-21 13:08 | Emergency (ER) | payer MEDICAID, SELFPAY ==
[2022-11-21 13:16] VITALS: BP 122/82; PULSE 83; RESP 18; TEMP 36.7; O2SAT 97; BMI 29.2
[2022-11-21 15:53] LABS: Basophils # 0.1 10^3/uL (0.0-0.1); Basophils % 0.7 %; Eosinophils # 0.2 10^3/uL (0.0-0.8); Eosinophils % 1.3 %; Hematocrit 46.9 % (37.0-47.0); Hemoglobin 15.5 g/dL (11.5-15.3); Lymphocytes # 5.1 10^3/uL (0.8-4.8); Lymphocytes % 36.4 %; Mean Platelet Volume 9.3 fL (7.4-10.4); Monocytes # 0.6 10^3/uL (0.2-0.9); Monocytes % 4.5 %; Neutrophils # 7.96 10^3/uL (1.8-7.7); Neutrophils % 56.5 %; Nucleated Red Blood Cells % 0 %; Platelet Count 407 10^3/cmm (130-400); Red Blood Count 4.69 10^6/uL (4.1-5.3); Red Cell Distribution Width 13.8 % (12.1-15.1); White Blood Count 14.1 10^3/uL (4.0-10.0)
[2022-11-21 16:10] LABS: Alanine Aminotransferase 11 U/L (0-33); Albumin Level 4.6 g/dL (3.5-5.2); Alkaline Phosphatase 88 U/L (35-105); Anion Gap 19.2 (5-19); Aspartate Amino Transferase 10 U/L (0-32); Blood Urea Nitrogen 7 mg/dL (6-20); Calcium 9.6 mg/dL (8.5-10.5); Carbon Dioxide 24 mmol/L (22-29); Chloride 98 mmol/L (98-107); Globulin 3.2 g/dL (1.3-4.6); Glomerular Filtration Rate 76.6 mL/min (90-130); Glucose 95 mg/dL (65-115); Lipase 22 U/L (13-60); Osmolality Calculated 282 mOsm/kg (285-295); Potassium 4.2 mmol/L (3.5-5.1); Sodium 137 mmol/L (136-145); Total Bilirubin 0.3 mg/dL (0.15-1.2); Total Protein 7.8 g/dL (6.6-8.7)
== END 2022-11-21 20:00 | disposition left against medical advice (07) ==
PROVIDERS: Emergency Provider Family Medicine; PCP Nurse Practitioner Family
DX: Z53.21 Procedure and treatment not carried out due to patient leaving prior to being seen by health care provider (principal)
CPT/HCPCS: 36415; 80053; 83690; 85025; 99283

== ENCOUNTER → 2022-11-29 14:36 | Outpatient (BNVA) | payer MEDICAID, SELFPAY | PROVIDERS: PCP Nurse Practitioner Family; Visit Provider Nurse Practitioner Family | DX: R30.9 Painful micturition, unspecified (principal); N94.10 Unspecified dyspareunia; R35.0 Frequency of micturition; Z90.710 Acquired absence of both cervix and uterus; D72.829 Elevated white blood cell count, unspecified | CPT/HCPCS: 81003; 85007; 85025 ==

== ENCOUNTER 2023-01-06 10:36 | Outpatient (CLI) | payer MEDICAID, SELFPAY ==
--- NOTE | 2023-01-06 10:57 | MM_ITS ---
WS: [id number] BILATERAL 3D TOMOSYNTHESIS DIGITAL SCREENING MAMMOGRAPHY WITH CAD CLINICAL INFORMATION: SCREENING HISTORY: Screening mammogram. No current complaints. COMPARISON: 2020 TECHNIQUE: Bilateral CC and MLO views. FINDINGS: Scattered fibroglandular densities bilaterally. No suspicious focal mass, asymmetry, calcifications, or architectural distortion. No evidence of malignancy. A few incidental punctate calcifications. MM/[place] [id number] IMPRESSION: BI-RADS: 2-Benign FOLLOW UP: 1 Year Follow-up Recommend return to annual screening mammography.
== END 2023-01-06 10:37 | disposition home or self-care (01) ==
LOC: RAD 10:40
PROVIDERS: PCP Nurse Practitioner Family; Visit Provider Obstetrics & Gynecology
DX: Z12.31 Encounter for screening mammogram for malignant neoplasm of breast (principal)
CPT/HCPCS: 77063; 77067

== ENCOUNTER → 2023-01-10 13:54 | Outpatient (BNVA) | payer MEDICAID, SELFPAY | PROVIDERS: PCP Nurse Practitioner Family; Visit Provider Surgery | DX: R10.11 Right upper quadrant pain (principal) | CPT/HCPCS: 99213 ==

== ENCOUNTER 2023-04-04 10:33 | Emergency (ER) | payer MEDICAID, SELFPAY ==
[2023-04-04 10:34] VITALS: BP 131/89; PULSE 70; TEMP 36.8; O2SAT 98; BMI 33.2
--- NOTE | 2023-04-04 10:44 | ED_ITS ---
HPI - Abdominal Pain General: Chief Complaint: Abdominal Pain Stated Complaint: Abd pain Time Seen by Provider: 04/04/23 10:37 Source: patient Mode of arrival: ambulatory Limitations: no limitations History of Present Illness: Patient is a 47-year-old female with history of appendectomy and cholecystectomy who presents to the emergency department complaining of left upper quadrant abdominal pain onset 2 days. Patient states she was seated at home when the pain initially started and has been constant ever since. She has a long standing history of chronic abdominal/pelvic pains. She reports associated nausea, vomiting, diarrhea, constipation, dizziness, and a subjective fever. She states that for multiple years she has dealt with noticing blood in her stools and alternating constipation/diarrhea. She has a history of an EGD, and had a colonoscopy in September of this year. She states she has taken ibuprofen for her pain but to no relief. She denies any recent sick contacts. MD elicited complaint: abdominal pain Pertinent past history: none Onset (ago): day(s) Pain Consistency: constant Location: LUQ Severity: severe Pain scale (0-10): 8 Quality: stabbing Radiation: back Migration to: no migration Exacerbating factors: nothing Relieving factors: nothing Associated Symptoms: Reports change in bowel habits, change in stool character, constipation, diarrhea, fever(s) (Subjective), hematochezia, nausea and vomiting; Denies chills, dysuria, hematuria and syncope Related Data: Patient : No Review of Systems Const: Reports: fever(s) (Subjective); Denies: chills, body aches, fatigue or malaise Eyes: Denies: change in vision or blurry vision Card: Denies: chest pain, palpitations, irregular heart rhythm, lightheadedness, syncope or dyspnea on exertion Resp: Denies: dyspnea, productive cough or pain on inspiration GI: Reports: abdominal pain, nausea, vomiting, diarrhea, constipation, change in bowel habits, change in stool character and hematochezia : Denies: flank pain, difficulty voiding, dysuria, urinary urgency, urinary hesitancy or hematuria Musc: Denies: neck pain, back pain, extremity pain, extremity swelling or joint pain Skin/Breast: Denies: rash Neuro: Reports: dizziness; Denies: headache(s), numbness in extremities, weakness in extremities or sensory changes PFSH ED PFSH: Surgical History History of esophagogastroduodenoscopy (EGD) History of tonsillectomy and adenoidectomy Hx of appendectomy 2000 Hx of cholecystectomy Hx of colonoscopy 09/19/22 Dr. Theodore Hx of hysterectomy 2002 Social History Smoking and tobacco status: current every day smoker cigarettes Packs smoked per day: 1 Alcohol intake: never Substance/Drug Use: current Substance/Drug use frequency: few times a week Current gender identity: Female Physical Exam Const: COMMON NORMALS: no acute distress, patient oriented x3, no limitations, alert and well nourished GENERAL APPEARANCE: cooperative NUTRITIONAL APPEA MARTINA: overweight ORIENTATION/CONSCIOUSNESS: Yes awake, Yes oriented to person, Yes oriented to place and Yes oriented to time HENMT: COMMON NORMALS: normocephalic and atraumatic HEAD & SCALP: normocephalic and atraumatic Eye: COMMON NORMALS: no scleral icterus Neck/C-Spine: COMMON NORMALS: full ROM, no lymphadenopathy, supple and no meningeal signs Chest: COMMONS NORMALS: normal inspection of the chest Resp: COMMON NORMALS: normal respiratory effort and clear to auscultation bilaterally AUSCULTATION: clear to auscultation bilaterally Cardio: COMMON NORMALS: regular rate and regular rhythm RATE: regular rate RHYTHM: regular rhythm GI: COMMON NORMALS: Normal to inspection, nondistended, normoactive bowel sounds present, Soft to palpation, No hepatosplenomegaly present and no masses AUSCULTATION: Yes normoactive bowel sounds PALPATION: Yes Soft to palpation, Yes Tenderness to palpation present (GI) Details: LLQ and LUQ and Yes No hepatosplenomegaly present : COMMON NORMALS: Yes no CVA tenderness BLADDER/KIDNEY EXAM: Yes no CVA tenderness Back/Pelvis: COMMON NORMALS: no CVA tenderness and thoracic and lumbar spine normal to inspection Extremity: COMMON NORMALS: normal to inspection GENERAL: Yes normal exam except as noted Neuro: TINA COMA SCALE: document GCS findings [place] coma scale eye opening: Spontaneous [place] coma scale verbal response: Orientated Tina coma scale motor response: Obey commands Tina coma scale total score: 15 COMMON NORMALS: patient oriented x3, moves all extremities, no focal motor deficits and no sensory deficits noted SENSORIUM/ORIENTATION: Yes alert, Yes oriented to person, Yes oriented to place and Yes oriented to time MENINGEAL SIGNS: Yes no meningeal signs Skin: COMMON NORMALS: no rashes or lesions noted GENERAL SKIN EXAM: no rashes or lesions noted Course Vital Signs: Vital signs: Vital Signs Temperature 98.3 F 04/04/23 10:34 Pulse Rate 61 04/04/23 13:30 Respiratory Rate 17 04/04/23 11:05 Blood Pressure 113/62 04/04/23 13:30 Pulse Oximetry 95 04/04/23 13:30 Oxygen Delivery Me thod Room Air 04/04/23 13:30 MDM - Abdominal Pain Medical Decision Making Patient is a 47-year-old female with a history of chronic abdominal pains, diarrhea, constipation and intermittent bloody stools here for complaints of left sided abdominal pain. She arrives with normal vital signs. Her blood work is completely unremarkable. She was given pain meds, nausea meds, and a GI cocktail without much relief. Patient was given option to go home and follow-up with PCP or stay and obtain CT imaging for further possible diagnostic etiology- she requested CT scan. This essentially is normal. She had a small amount of submucosal edema at the rectum that radiologist said to consider mild proctitis. I do not think symptoms today are consistent with this. 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 These have been present since at least March 2021. She needs follow-up for this. She states she will follow-up with primary care and possibly obtain referral to pulmonology if indicated. Patient's previous documentation was reviewed. She has been seen multiple times over the past 2 years for complaints of abdominal and pelvic pains. She has had multiple imaging modalities performed as well as colonoscopies and EGDs. At this point I have no suspicion for anything emergent or life-threatening for her symptoms today. She is stable to follow-up with her primary care provider. Lab Data 04/04/23 10:48 04/04/23 11:23 Labs/Radiology: Laboratory Results WBC 11.44 10^3/uL (3.29-11.43) H 04/04/23 10:48 RBC 4.52 10^6/uL (3.85-5.65) 04/04/23 10:48 Hgb 15.30 g/dL (11.27-16.99) 04/04/23 10:48 Hct 46.2 % (36-47) 04/04/23 10:48 MCV 102.2 fl (85-98) H 04/04/23 10:48 MCH 33.8 pg (27-33) H 04/04/23 10:48 MCHC 33.1 g/dL (30-55) 04/04/23 10:48 RDW 14.6 % (12.1-15.1) 04/04/23 10:48 Plt Count 318 10^3/cmm (157-399) 04/04/23 10:48 MPV 10.4 fL (7.4-10.4) 04/04/23 10:48 Neut % (Auto) 62.8 % 04/04/23 10:48 Lymph % (Auto) 27.1 % 04/04/23 10:48 [place] % (Auto) 7.1 % 04/04/23 10:48 Eos % (Auto) 1.6 % 04/04/23 10:48 Baso % (Auto) 0.9 % 04/04/23 10:48 Neut # (Auto) 7.19 10^3/uL (1.8-7.7) 04/04/23 10:48 Lymph # (Auto) 3.1 10^3/uL (0.8-4.8) 04/04/23 10:48 [place] # (Auto) 0.8 10^3/uL (0.2-0.9) 04/04/23 10:48 Eos # (Auto) 0.2 10^3/uL (0.0-0.8) 04/04/23 10:48 Baso # (Auto) 0.1 10^3/uL (0.0-0.1) 04/04/23 10:48 Nucleated RBC % (auto) 0 % 04/04/23 10:48 Nucleated RBCs # 0.0 /100WBC 04/04/23 10:48 Sodium 138 mmol/L (136-145) 04/04/23 11:23 Potassium 4.9 mmol/L (3.5-5.1) 04/04/23 11:23 Chloride 103 mmol/L (98-107) 04/04/23 11:23 Carbon Dioxide 26 mmol/L (22-29) 04/04/23 11:23 Anion Gap 13.9 (5-19) 04/04/23 11:23 BUN 8 mg/dL (6-20) 04/04/23 11:23 Creatinine 0.7 mg/dL (0.5-0.9) 04/04/23 11:23 GFR Calculation 89.3 mL/min (90-130) L 04/04/23 11:23 Glucose 93 mg/dL (65-115) 04/04/23 11:23 Calculated Osmolality 284 mOsm/kg (285-295) L 04/04/23 11:23 Calcium 9.6 mg/dL (8.5-10.5) 04/04/23 11:23 Total Bilirubin 0.4 mg/dL (0.15-1.2) 04/04/23 11:23 AST 12 U/L (0-32) 04/04/23 11: ALT 12 U/L (0-33) 04/04/23 11:23 Alkaline Phosphatase 85 U/L (35-105) 04/04/23 11:23 Total Protein 7.3 g/dL (6.6-8.7) 04/04/23 11:23 Albumin 4.5 g/dL (3.5-5.2) 04/04/23 11:23 Globulin 2.8 g/dL (1.3-4.6) 04/04/23 11:23 Lipase 25 U/L (13-60) 04/04/23 11:23 Urine Color Yellow (Yellow) 04/04/23 12:03 Urine Appearance Clear (CLEAR) 04/04/23 12:03 Urine pH 5 (5-7) 04/04/23 12:03 Ur Specific [place] 1.015 (1.005-1.030) 04/04/23 12:03 Urine Protein Neg (Negative) 04/04/23 12:03 Urine Glucose (UA) Norm (Normal) 04/04/23 12:03 Urine Ketones Negative (Negative) 04/04/23 12:03 Urine Blood Neg (Negative) 04/04/23 12:03 Urine Nitrate Negative (Negative) 04/04/23 12:03 Urine Bilirubin Neg (Negative) 04/04/23 12:03 Urine Urobilinogen Norm mg/dL (Negative) 04/04/23 12:03 Ur Leukocyte Esterase Negative (Negative) 04/04/23 12:03 Discharge Plan Discharge Patient Disposition: Home Clinical Impression: Chronic abdominal pain Condition: Stable Prescriptions: No Action pantoprazole [Protonix] 40 mg tablet,delayed release (DR/EC) 40 mg PO BID 42 Days Qty: 84 1RF prazosin 5 mg capsule 10 mg PO BEDTIME 30 Days Qty: 60 3RF hydroxyzine pamoate [Vistaril] 25 mg capsule 25 mg PO BID PRN (Reason: anxiety) 30 Days Qty: 60 3RF fluoxetine 40 mg capsule 80 mg PO DAILY 30 Days Qty: 60 3RF doxepin 25 mg capsule 25 mg PO BEDTIME Qty: 30 3RF fluticasone propion-salmeterol [Advair Diskus] 500-50 mcg/dose blister with device 1 inh INHALATION BID Qty: 60 6RF quetiapine 50 mg tablet 50 mg PO BEDTIME 30 Days Qty: 30 5RF Rx Instructions: may take a whole or half tab po hs ropinirole 3 mg tablet 3 mg PO BEDTIME 30 Days Qty: 30 5RF albuterol sulfate [Ventolin HFA] 90 mcg/actuation HFA aerosol inhaler 2 inh inhalation Q6H PRN (Reason: shortness of breath or wheezing) Qty: 8.5 2RF loratadine 10 mg tablet See Rx Instructions .ROUTE .COMPLEX Qty: 90 3RF Dose Instruction: TAKE ONE TABLET BY MOUTH ONCE DAILY Rx Instructions: TAKE ONE TABLET BY MOUTH ONCE DAILY Discharge Orders: Discharge ED (Routine); Ordered 04/04/23 Ordered By: Milli Stahl Referrals: Sylvia Salcedo NP [Primary Care Provider] - Patient Instructions: Abdominal Pain (ED) Coding Level of Care Code ED Air Traffic Control Equipment Repairer for Josr Scott
[2023-04-04 11:00] LABS: Basophils # 0.1 10^3/uL (0.0-0.1); Basophils % 0.9 %; Eosinophils # 0.2 10^3/uL (0.0-0.8); Eosinophils % 1.6 %; Hematocrit 46.2 % (36-47); Lymphocytes # 3.1 10^3/uL (0.8-4.8); Lymphocytes % 27.1 %; Mean Corpuscular HGB Conc 33.1 g/dL (30-55); Mean Corpuscular Hemoglobin 33.8 pg (27-33); Mean Corpuscular Volume 102.2 fl (85-98); Mean Platelet Volume 10.4 fL (7.4-10.4); Monocytes # 0.8 10^3/uL (0.2-0.9); Monocytes % 7.1 %; Neutrophils # 7.19 10^3/uL (1.8-7.7); Neutrophils % 62.8 %; Nucleated Red Blood Cells % 0 %; Platelet Count 318 10^3/cmm (157-399); Red Blood Count 4.52 10^6/uL (3.85-5.65); Red Cell Distribution Width 14.6 % (12.1-15.1); White Blood Count 11.44 10^3/uL (3.29-11.43)
[2023-04-04 11:05] VITALS: RESP 17
[2023-04-04] MEDS: morphine 4 mg/mL SDV 1 mL IVP (11:05)
[2023-04-04] MEDS: ondansetron 2 mg/ML SDV 2 mL 4 MG IVP (11:05)
[2023-04-04] MEDS: aluminum-mag hydrox-simethicon 30 ML, sucralfate oral liq 1 GM PO (11:12)
[2023-04-04 11:47] LABS: Alanine Aminotransferase 12 U/L (0-33); Albumin Level 4.5 g/dL (3.5-5.2); Alkaline Phosphatase 85 U/L (35-105); Anion Gap 13.9 (5-19); Aspartate Amino Transferase 12 U/L (0-32); Blood Urea Nitrogen 8 mg/dL (6-20); Calcium 9.6 mg/dL (8.5-10.5); Carbon Dioxide 26 mmol/L (22-29); Chloride 103 mmol/L (98-107); Globulin 2.8 g/dL (1.3-4.6); Glomerular Filtration Rate 89.3 mL/min (90-130); Glucose 93 mg/dL (65-115); Lipase 25 U/L (13-60); Osmolality Calculated 284 mOsm/kg (285-295); Potassium 4.9 mmol/L (3.5-5.1); Sodium 138 mmol/L (136-145); Total Bilirubin 0.4 mg/dL (0.15-1.2); Total Protein 7.3 g/dL (6.6-8.7)
[2023-04-04 11:55] VITALS: BP 121/73; PULSE 62; O2SAT 95
--- NOTE | 2023-04-04 12:11 | CT_ITS ---
WS: [id number] CT ABDOMEN AND PELVIS WITH CONTRAST HISTORY: L abdominal pain TECHNIQUE: Imaging performed of the abdomen and pelvis with IV contrast. Single phase imaging of the abdomen. Coronal and sagittal reformats are submitted. All CT scans at [facility] use at [address] one of these dose optimization techniques: automated exposure control; mA and/or kV adjustment per patient size (includes targeted exams where dose is matched to clinical indication); or iterative re construction. IV CONTRAST: Omnipaque 350; 100 mL IV. Oral contrast: No DLP: 740.43 mGy.cm COMPARISON: 07/19/2022 Lower thorax: Again noted is progressive tree-in-bud nodularity in the lower lung pagan bilaterally. This is typically seen with endobronchial pneumonia and is likely infectious. Heart is normal size. Small hiatal hernia. Liver/biliary system: Normal size with no intrahepatic dilatation. Gallbladder: Status post cholecystectomy. Pancreas: Normal size pancreas and pancreatic duct. No adjacent inflammation. Spleen: Normal size spleen. No mass or infarct. Adrenal glands: Normal. Right kidney: Normal. Left kidney: Normal. Aorta: Mild atherosclerosis with no aneurysm. Lymphadenopathy: None. Free fluid: None. GI tract: Prior appendectomy. Normally distended stomach. No small bowel obstruction. No hypervascula r lesions within the colon. No significant diverticular disease. There is very mild submucosal edema in the very distal colon towards the rectum. No adjacent inflammation. Abdominal wall: Unremarkable abdominal wall. No hernia. Pelvis: No free fluid or adenopathy within the pelvis. Nondistended bladder. Uterus is not visualized . No pelvic masses. Bones: Unremarkable. IMPRESSION: 1. No renal obstruction. 2. Prior appendectomy and cholecystectomy. 3. No GI tract obstruction. There is a minimal submucosal edema within the very distal colon at the rectum. Consider mild proctitis. There is no acute inflammation to suggest acute finding. Mild inflam matory bowel disease should be considered. 4. Mild tree-in-bud inflammatory changes at the lung bases. Typically seen with endobronchial pneumo suyapa.
[2023-04-04 12:12] LABS: Add Urine Microscopic? NO; Charge for UA Resulting for Rev
[2023-04-04 12:19] LABS: Bilirubin Urine Neg (Negative); Blood Urine Neg (Negative); Glucose Urine UA Norm (Normal); Ketones Urine Negative (Negative); Leukocyte Esterase Urine Negative (Negative); Nitrate Urine Negative (Negative); Protein Urine Neg (Negative); Specific Gravity, Urine 1.015 (1.005-1.030); Urine Appearance Clear (CLEAR); Urine Color Yellow (Yellow); Urobilinogen Urine Norm (Negative); pH Urine 5 (5-7)
[2023-04-04 12:30] VITALS: BP 148/78; PULSE 67; O2SAT 99
[2023-04-04] MEDS: iohexol 350 mg/mL 500 mL Btl (per mL) IV (12:32)
[2023-04-04 13:30] VITALS: BP 113/62; PULSE 61; O2SAT 95
== END 2023-04-04 13:56 | disposition home or self-care (01) ==
PROVIDERS: Emergency Provider Physician Assistant; PCP Nurse Practitioner Family
DX: G89.29 Other chronic pain (principal); R10.12 Left upper quadrant pain; F17.210 Nicotine dependence, cigarettes, uncomplicated
CPT/HCPCS: 36415; 74177; 80053; 81003; 83690; 85025; 96374; 96375; 99285; J2270; J2405; Q9967

== ENCOUNTER 2023-05-04 13:59 | Emergency (ER) | payer MEDICAID, SELFPAY ==
[2023-05-04 14:03] VITALS: BP 110/76; PULSE 73; RESP 16; TEMP 37.7; O2SAT 98; BMI 31.2
--- NOTE | 2023-05-04 14:26 | CT_ITS ---
WS: [id number] CT HEAD NONCONTRAST HISTORY: trauma TECHNIQUE: Contiguous axial imaging performed through the brain in 2.5 mm imaging. Bone and soft tiss ue windows. Sagittal and coronal reformats reviewed. All CT scans at [facility] use at least one of these dose optimization techniques: automated exposure control; mA and/or kV adjustment per pa tient size (includes targeted exams where dose is matched to clinical indication); or iterative recon struction. DLP: 983.05 mGy.cm COMPARISON: None available. No acute intracranial hemorrhage, midline shift or mass effect. No atrophy or prior infarcts or herniation. Ventricles: Normal size with no hydrocephalus. Paranasal sinuses: As visualized are clear. Mastoid air cells: Well pneumatized. Calvarium and scalp: Skull is intact with no soft tissue edema or swelling. IMPRESSION: Negative head CT.
--- NOTE | 2023-05-04 14:43 | W.ED.SEIZURE ---
HPI - Seizure General: Chief Complaint: Seizure Stated Complaint: head injury, fall from seizure Time Seen by Provider: 05/04/23 14:14 Source: patient Mode of arrival: ambulatory History of Present Illness: HPI Narrative: 47-year-old female reports having what she thought was a seizure last night while watching a movie. A fast for the movie her significant other is with her states she then got up and then fell to the floor she never had any tonic-clonic like activities. No tongue biting no loss of bowel or bladder control. No episodes of vomiting or diarrhea. States she still has a headache now and she feels very nauseous but is not actually vomited. Denies fever sweats or chills. No change in vision. MD complaint: possible seizure Description of Episode: loss of consciousness Witnessed: Yes - by Bystander Trauma: No Seizure History: Yes (Possibly) Place: Home Associated symptoms: Reports confusion and weakness; Deny chest pain, chills, cough, diaphoresis, fever(s), anorexia, malaise, rash, short of breath or syncope Review of Systems Const: Denies: fever(s), chills, malaise or diaphoresis Card: Denies: chest pain, palpitations, irregular heart rhythm or syncope Resp: Denies: dyspnea, productive cough or non-productive cough GI: Denies: abdominal pain, nausea or vomiting : Denies: flank pain, difficulty voiding, dysuria, urinary frequency or urinary urgency Skin/Breast: Denies: rash or pruritus Neuro: Reports: confusion PFSH ED PFSH: Medical History Psychiatric care Surgical History History of esophagogastroduodenoscopy (EGD) History of tonsillectomy and adenoidectomy Hx of appendectomy 2000 Hx of cholecystectomy Hx of colonoscopy 09/19/22 Dr. Theodore Hx of hysterectomy 2002 Social History Smoking and tobacco status: current every day smoker cigarettes Packs smoked per day: 1 Alcohol intake: never Substance/Drug Use: current Substance/Drug use frequency: few times a week Current gender identity: Female Physical Exam Const: GENERAL APPEARANCE: cooperative and comfortable ORIENTATION/CONSCIOUSNESS: Yes awake, Yes oriented to person, Yes oriented to place and Yes oriented to time HENMT: COMMON NORMALS: normocephalic, atraumatic and hearing grossly normal bilaterally HEAD & SCALP: normocephalic and atraumatic Resp: COMMON NORMALS: normal respiratory effort, No retractions, No use of accessory muscles and clear to auscultation bilaterally AUSCULTATION: clear to auscultation bilaterally Cardio: COMMON NORMALS: regular rate, regular rhythm and No murmurs present (Cardio) RATE: regular rate RHYTHM: regular rhythm GI: COMMON NORMALS: Soft to palpation and No hepatosplenomegaly present AUSCULTATION: Yes normoactive bowel sounds PALPATION: Yes Soft to palpation, No Tenderness to palpation present (GI), No Guarding due to palpation present (GI) and Yes No hepatosplenomegaly present Extremity: COMMON NORMALS: normal to inspection, capillary refill normal, no clubbing, cyanosis or edema, no calf tenderness and no pedal edema Neuro: SENSORIUM/ORIENTATION: Yes oriented to person, Yes oriented to place and Yes oriented to time Skin: COMMON NORMALS: no rashes or lesions noted GENERAL SKIN EXAM: no rashes or lesions noted Course Vital Signs: Vital signs: Vital Signs Temperature 99.8 F H 05/04/23 14:03 Pulse Rate 57 L 05/04/23 15:48 Respiratory Rate 18 05/04/23 15:48 Blood Pressure 131/71 05/04/23 15:48 Pulse Oximetry 97 05/04/23 15:48 Oxygen Delivery Me thod Room Air 05/04/23 15:48 MDM - Seizure MDM Narrative Medical decision making narrative: Head CT unremarkable Labs reviewed. Elevation of white count with no signs of infection at this time. Suspect this is a syncopal episode after she sat up she never had any tonic-clonic movements. Discharge home recheck with primary care within the week return if has further problems. Case management to arrange for outpatient sleep deprived EEG and follow-up with neurology Medical Records Attestation: I reviewed the patient's medical records. Lab Data Attestation: I reviewed the patient's lab results. 05/04/23 14:47 05/04/23 14:47 Labs: Laboratory Results WBC 14.22 10^3/uL (3.29-11.43) H 05/04/23 14:47 RBC 4.04 10^6/uL (3.85-5.65) 05/04/23 14:47 Hgb 14.00 g/dL (11.27-16.99) 05/04/23 14:47 Hct 41.6 % (36-47) 05/04/23 14:47 MCV 103.0 fl (85-98) H 05/04/23 14:47 MCH 34.7 pg (27-33) H 05/04/23 14:47 MCHC 33.7 g/dL (30-55) 05/04/23 14:47 RDW 14.7 % (12.1-15.1) 05/04/23 14:47 Plt Count 363 10^3/cmm (157-399) 05/04/23 14:47 MPV 9.4 fL (7.4-10.4) 05/04/23 14:47 Neut % (Auto) 55.3 % 05/04/23 14:47 Lymph % (Auto) 34.5 % 05/04/23 14:47 [place] % (Auto) 6.4 % 05/04/23 14:47 Eos % (Auto) 2.5 % 05/04/23 14:47 Baso % (Auto) 0.6 % 05/04/23 14:47 Neut # (Auto) 7.88 10^3/uL (1.8-7.7) H 05/04/23 14:47 Lymph # (Auto) 4.9 10^3/uL (0.8-4.8) H 05/04/23 14:47 [place] # (Auto) 0.9 10^3/uL (0.2-0.9) 05/04/23 14:47 Eos # (Auto) 0.4 10^3/uL (0.0-0.8) 05/04/23 14:47 Baso # (Auto) 0.1 10^3/uL (0.0-0.1) 05/04/23 14:47 Nucleated RBC % (auto) 0 % 05/04/23 14:47 Nucleated RBCs # 0.0 /100WBC 05/04/23 14:47 Sodium 137 mmol/L (136-145) 05/04/23 14:47 Potassium 4.3 mmol/L (3.5-5.1) 05/04/23 14:47 Chloride 101 mmol/L (98-107) 05/04/23 14:47 Carbon Dioxide 27 mmol/L (22-29) 05/04/23 14:47 Anion Gap 13.3 (5-19) 05/04/23 14:47 BUN 8 mg/dL (6-20) 05/04/23 14:47 Creatinine 0.7 mg/dL (0.5-0.9) 05/04/23 14:47 GFR Calculation 89.3 mL/min (90-130) L 05/04/23 14:47 Glucose 103 mg/dL (65-115) 05/04/23 14:47 Calculated Osmolality 283 mOsm/kg (285-295) L 05/04/23 14:47 Calcium 8.9 mg/dL (8.5-10.5) 05/04/23 14:47 Total Bilirubin 0.3 mg/dL (0.15-1.2) 05/04/23 14:47 AST 10 U/L (0-32) 05/04/23 14:47 ALT 7 U/L (0-33) 05/04/23 14:47 Alkaline Phosphatase 80 U/L (35-105) 05/04/23 14:47 Total Protein 7.0 g/dL (6.6-8.7) 05/04/23 14:47 Albumin 4.1 g/dL (3.5-5.2) 05/04/23 14:47 Globulin 2.9 g/dL (1.3-4.6) 05/04/23 14:47 All radiology interpretation(s) finalized by discharge Discharge Plan Discharge Patient Disposition: Home Clinical Impression: Seizure, Closed head injury, Fall Condition: Stable Prescriptions: No Action pantoprazole [Protonix] 40 mg tablet,delayed release (DR/EC) 40 mg PO BID 42 Days Qty: 84 1RF prazosin 5 mg capsule 10 mg PO BEDTIME 30 Days Qty: 60 3RF hydroxyzine pamoate [Vistaril] 25 mg capsule 25 mg PO BID PRN (Reason: anxiety) 30 Days Qty: 60 3RF fluoxetine 40 mg capsule 80 mg PO DAILY 30 Days Qty: 60 3RF doxepin 25 mg capsule 25 mg PO BEDTIME Qty: 30 3RF fluticasone propion-salmeterol [Advair Diskus] 500-50 mcg/dose blister with device 1 inh INHALATION BID Qty: 60 6RF quetiapine 50 mg tablet 50 mg PO BEDTIME 30 Days Qty: 30 5RF Rx Instructions: may take a whole or half tab po hs ropinirole 3 mg tablet 3 mg PO BEDTIME 30 Days Qty: 30 5RF albuterol sulfate [Ventolin HFA] 90 mcg/actuation HFA aerosol inhaler 2 inh inhalation Q6H PRN (Reason: shortness of breath or wheezing) Qty: 8.5 2RF loratadine 10 mg tablet 10 mg PO DAILY Discharge Orders: Discharge ED (Routine); Ordered 05/04/23 Ordered By: Daniel Pérez Referrals: Sylvia Salcedo, DRAWING PRESS OPERATOR [Primary Care Provider] - Discharge Diet: Usual diet Discharge Activity: Limit activity as instructed Patient Instructions: Opioid Safety, Pain Management, Seizures Activity Restrictions/Additional Instructions: You are seen today after a fall with possible seizure last evening. Recommend that you have a outpatient EEG and follow-up with neurology. You should not drive until cleared by neurology to Coding Level of Care Code ED Drivematic Machine Operator for Josr Scott
[2023-05-04 14:56] LABS: Basophils # 0.1 10^3/uL (0.0-0.1); Basophils % 0.6 %; Eosinophils # 0.4 10^3/uL (0.0-0.8); Eosinophils % 2.5 %; Hematocrit 41.6 % (36-47); Lymphocytes # 4.9 10^3/uL (0.8-4.8); Lymphocytes % 34.5 %; Mean Corpuscular HGB Conc 33.7 g/dL (30-55); Mean Corpuscular Hemoglobin 34.7 pg (27-33); Mean Platelet Volume 9.4 fL (7.4-10.4); Monocytes # 0.9 10^3/uL (0.2-0.9); Monocytes % 6.4 %; Neutrophils # 7.88 10^3/uL (1.8-7.7); Neutrophils % 55.3 %; Nucleated Red Blood Cells % 0 %; Platelet Count 363 10^3/cmm (157-399); Red Blood Count 4.04 10^6/uL (3.85-5.65); Red Cell Distribution Width 14.7 % (12.1-15.1); White Blood Count 14.22 10^3/uL (3.29-11.43)
[2023-05-04 15:02] VITALS: BP 102/67; PULSE 62; RESP 18; O2SAT 98
[2023-05-04 15:16] LABS: Alanine Aminotransferase 7 U/L (0-33); Albumin Level 4.1 g/dL (3.5-5.2); Alkaline Phosphatase 80 U/L (35-105); Anion Gap 13.3 (5-19); Aspartate Amino Transferase 10 U/L (0-32); Blood Urea Nitrogen 8 mg/dL (6-20); Calcium 8.9 mg/dL (8.5-10.5); Carbon Dioxide 27 mmol/L (22-29); Chloride 101 mmol/L (98-107); Globulin 2.9 g/dL (1.3-4.6); Glomerular Filtration Rate 89.3 mL/min (90-130); Glucose 103 mg/dL (65-115); Osmolality Calculated 283 mOsm/kg (285-295); Potassium 4.3 mmol/L (3.5-5.1); Sodium 137 mmol/L (136-145); Total Bilirubin 0.3 mg/dL (0.15-1.2)
[2023-05-04 15:46] VITALS: BP 102/64; BP 114/74; BP 131/71; PULSE 59; PULSE 60; PULSE 63
[2023-05-04 15:48] VITALS: BP 131/71; PULSE 57; RESP 18; O2SAT 97
--- NOTE | 2023-05-07 16:42 | PC.SOCIAL ---
Neurology F/u Messaged clinic for f/u appt; clinic to contact patient. O/p sleep deprived EEG Orders for EEG faxed to [facility]. scheduling at this time.
== END 2023-05-04 16:13 | disposition home or self-care (01) ==
PROVIDERS: Emergency Provider Family Medicine; PCP Nurse Practitioner Family
DX: R56.9 Unspecified convulsions (principal); S09.8XXA Other specified injuries of head, initial encounter; F17.210 Nicotine dependence, cigarettes, uncomplicated; W18.39XA Other fall on same level, initial encounter
CPT/HCPCS: 36415; 70450; 80053; 85025; 99284

== ENCOUNTER 2023-08-08 14:49 | Outpatient (CLI) | payer MEDICAID, SELFPAY ==
[2023-08-08 15:43] LABS: Chol HDL Ratio 4.49 mg/dL (0.0-4.40); Cholesterol 220 mg/dL (0-200); HDL Cholesterol 49 mg/dL (60-100); LDL Cholesterol Calculated 114 mg/dL (50-129); LDL HDL Ratio 2.33 RATIO (0.00-3.22); Triglycerides 283 mg/dL (0-150)
[2023-08-08 17:27] LABS: Estmated Average Glucose 100; Hemoglobin A1C 5.1 % (4.0-6.0)
== END 2023-08-08 14:50 | disposition home or self-care (01) ==
LOC: LAB 14:50
PROVIDERS: PCP Nurse Practitioner Family; Visit Provider Nurse Practitioner
DX: Z79.899 Other long term (current) drug therapy (principal)
CPT/HCPCS: 80061; 83036

== ENCOUNTER → 2024-03-08 11:30 | Outpatient (BNVA) | payer MEDICAID, SELFPAY | PROVIDERS: PCP Nurse Practitioner Family; Visit Provider Nurse Practitioner Family | DX: K90.49 Malabsorption due to intolerance, not elsewhere classified (principal) | CPT/HCPCS: 86003; 86008 ==

== ENCOUNTER → 2024-06-17 14:00 | Outpatient (BNVA) | payer MEDICAID, SELFPAY | PROVIDERS: PCP Nurse Practitioner Family; Visit Provider Nurse Practitioner Family | DX: S01.80XA Unspecified open wound of other part of head, initial encounter (principal); X58.XXXA Exposure to other specified factors, initial encounter | CPT/HCPCS: 87070; 87077; 87184 ==

== ENCOUNTER 2024-11-02 16:48 | Emergency (ER) | payer MEDICAID, SELFPAY ==
[2024-11-02 16:58] VITALS: BP 93/63; PULSE 89; RESP 12; TEMP 37.9; O2SAT 97; BMI 23.4
--- NOTE | 2024-11-02 17:07 | XR_ITS ---
WS: [id number] PORTABLE CHEST HISTORY: dyspnea/cough COMPARISON: CT abdomen 04/04/2023, 01/19/2021 x-ray Low lung volumes. Reticular interstitial prominence at the lung bases has been present on prior exams. No areas of consolidation. No pleural effusion or pneumothorax. Cardiac size: Normal. Mediastinum/Aorta: Normal mediastinum. No osseous abnormality seen. Calcific lobulated densities over the LEFT shoulder. Exact location difficult to determine and may be external to the patient. XR/XR chest 1V portable [id number] IMPRESSION: 1. Prominent stable interstitial reticulations at the lung bases. Suspecting m ild changes of interstitial lung disease. These findings were also present on x -ray from 2020. No progression. 2. No pneumonia.
[2024-11-02 17:46] LABS: Basophils # 0.1 10^3/uL (0.0-0.1); Basophils % 0.4 %; Eosinophils # 0.1 10^3/uL (0.0-0.8); Eosinophils % 0.2 %; Hematocrit 44.4 % (36-47); Lymphocytes # 1.8 10^3/uL (0.8-4.8); Lymphocytes % 7.1 %; Mean Corpuscular Hemoglobin 35.6 pg (27-33); Mean Corpuscular Volume 104.7 fl (85-98); Mean Platelet Volume 9.8 fL (7.4-10.4); Monocytes # 1.8 10^3/uL (0.2-0.9); Monocytes % 7.3 %; Neutrophils # 21.17 10^3/uL (1.8-7.7); Neutrophils % 84.4 %; Nucleated Red Blood Cells % 0 %; Platelet Count 297 10^3/cmm (157-399); Red Blood Count 4.24 10^6/uL (3.85-5.65); Red Cell Distribution Width 13.1 % (12.1-15.1); White Blood Count 25.09 10^3/uL (3.29-11.43)
[2024-11-02 17:56] LABS: HCG, Serum Qual Negative (Negative)
[2024-11-02 18:05] LABS: Alanine Aminotransferase 9 U/L (0-33); Albumin Level 4.4 g/dL (3.5-5.2); Alkaline Phosphatase 79 U/L (35-105); Anion Gap 15.9 (5-19); Aspartate Amino Transferase 13 U/L (0-32); Blood Urea Nitrogen 12 mg/dL (6-20); Calcium 9.3 mg/dL (8.5-10.5); Carbon Dioxide 24 mmol/L (22-29); Chloride 103 mmol/L (98-107); Globulin 2.7 g/dL (1.3-4.6); Glomerular Filtration Rate 75.9 mL/min (90-130); Glucose 102 mg/dL (65-115); Osmolality Calculated 288 mOsm/kg (285-295); Potassium 3.9 mmol/L (3.5-5.1); Sodium 139 mmol/L (136-145); Total Bilirubin 0.5 mg/dL (0.15-1.2); Total Protein 7.1 g/dL (6.6-8.7)
--- NOTE | 2024-11-02 18:43 | ED_ITS ---
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 She was walking on the side of the road there was cow manure nearby she was concerned that that had irritated her allergies. She does present with a fever. She denies any recent illness. And route she was given Zofran and Benadryl. Associated symptoms: Deny abdominal pain Related Data Previous Rx's ?Medication ?Instructions ?Recorded fluoxetine 20 mg tablet 20 mg PO DAILY #90 tabs 05/07 08/30 fluoxetine 60 mg tablet 60 mg PO QDAY #90 tabs 05/17 quetiapine 50 mg tablet 50 mg PO BEDTIME 30 days #30 tabs 05/17/24 ropinirole 3 mg tablet 3 mg PO BEDTIME 30 days #30 tabs 05/17/24 pantoprazole 40 mg tablet,delayed See Rx Instructions .Route 06/12/24 release .COMPLEX #180 tabs albuterol sulfate 90 mcg/actuation See Rx Instructions .Route 07/02/24 aerosol inhaler (Ventolin HFA) .COMPLEX #18 grams ondansetron 8 mg disintegrating See Rx Instructions .R oute 09/23/24 tablet .COMPLEX #30 tabs hydroxyzine HCl 25 mg tablet 25 mg PO BID PRN itching #60 tabs 10/18/24 Allergies Allergy/AdvReac Type Severity Reaction Status Date / Time Penicillins Allergy Severe Sweeling, Verified 09/12/24 10:45 rash, can't breathe Opioids - Morphine Analogues Allergy Intermediate ADR-Agitate Verified 09/12/24 10:45 d Alpha-Gal Allergy ADR-Gastrointestinal Verified 09/12/24 10:45 (Toposyzrt-Zysna-0,3-Gala Upset buspirone Allergy ALGY-Difficulty Verified 09/12/24 10:45 Breathing lactose Allergy Unknown Verified 09/12/24 10:45 metronidazole Allergy ADR-Vomitin Verified 09/12/24 10:45 g Review of Systems 2 Const: Denies: fever(s) or chills Card: Denies: chest pain Resp: Denies: dyspnea GI: Denies: abdominal pain : Denies: dysuria, urinary frequency or urinary urgency Musc: Denies: neck pain or back pain Skin/Breast: Denies: rash PFSH ED 2 PFSH: Medical History On combination antipsychotic drug therapy Psychiatric care Surgical History Hx of colonoscopy 09/19/22 Dr. Theodore History of esophagogastroduodenoscopy (EGD) Hx of hysterectomy 2002 Hx of cholecystectomy Hx of appendectomy 2000 History of tonsillectomy and adenoidectomy Social History Smoking and tobacco/nicotine status: never used tobacco/nicotine Alcohol intake: never Substance/Drug Use: current Substance/Drug use frequency: few times a week Current gender identity: Female Physical Exam 2 Const: COMMON NORMALS: no acute distress GENERAL APPEARANCE: cooperative and comfortable ORIENTATION/CONSCIOUSNESS: Yes awake, Yes oriented to person, Yes oriented to place and Yes oriented to time HENMT: COMMON NORMALS: normocephalic, atraumatic and hearing grossly normal bilaterally HEAD & SCALP: normocephalic and atraumatic Resp: COMMON NORMALS: normal respiratory effort, No retractions, No use of accessory muscles and clear to auscultation bilaterally AUSCULTATION: clear to auscultation bilaterally Cardio: COMMON NORMALS: regular rate, regular rhythm and No murmurs present (Cardio) RATE: regular rate RHYTHM: regular rhythm GI: COMMON NORMALS: Soft to palpation and No hepatosplenomegaly present A USCULTATION: Yes normoactive bowel sounds PALPATION: Yes Soft to palpation, No Tenderness to palpation present (GI), No Guarding due to palpation present (GI) and Yes No hepatosplenomegaly present Extremity: COMMON NORMALS: normal to inspection, capillary refill normal, no clubbing, cyanosis or edema, no calf tenderness and no pedal edema Neuro: SENSORIUM/ORIENTATION: Yes oriented to person, Yes oriented to place and Yes oriented to time Skin: COMMON NORMALS: no rashes or lesions noted GENERAL SKIN EXAM: no rashes or lesions noted Course 2 Vital Signs: Vital signs: Vital Signs Temperature 100.2 F H 11/02/24 16:58 Pulse Rate 89 11/02/24 16:58 Respiratory Rate 12 11/02/24 16:58 Blood Pressure 93/63 11/02/24 16:58 Pulse Oximetry 97 11/02/24 16:58 Oxygen Delivery Me thod Room Air 11/02/24 16:58 MDM - Allergic Reaction Medical Decision Making On exam patient has no wheezing no rash no stridor. Concerned with her white count being elevated 25,000 and her fever there is some other cause of her symptoms she does have a pretty significant left shift. I verified with nursing she not did not receive the steroids prior to the blood being drawn. She did not have any steroids recently. Concerned she may have another cause for her symptoms particularly infection. While we were doing a workup patient became angry because she felt that this was entirely her alpha gal and did not want any other evaluation done. Explained to her why we are doing this and that I was concerned that she had not had indeed had an alpha gal reaction but instead has an infectious process this needs to be evaluated further. Patient became angry along with her demanded to leave. We tried to dissuade her she left the nurse had to stop for 2 to take her IV out. She refused to sign the AMA form. Lab Data 11/02/24 17:40 11/02/24 17:40 Laboratory Results WBC 25.09 10^3/uL (3.29-11.43) H 11/02/24 17:40 RBC 4.24 10^6/uL (3.85-5.65) 11/02/24 17:40 Hgb 15.10 g/dL (11.27-16.99) 11/02/24 17:40 Hct 44.4 % (36-47) 11/02/24 17:40 MCV 104.7 fl (85-98) H 11/02/24 17:40 MCH 35.6 pg (27-33) H 11/02/24 17:40 MCHC 34.0 g/dL (30-55) 11/02/24 17:40 RDW 13.1 % (12.1-15.1) 11/02/24 17:40 Plt Count 297 10^3/cmm (157-399) 11/02/24 17:40 MPV 9.8 fL (7.4-10.4) 11/02/24 17:40 Neut % (Auto) 84.4 % 11/02/24 17:40 Lymph % (Auto) 7.1 % 11/02/24 17:40 [place] % (Auto) 7.3 % 11/02/24 17:40 Eos % (Auto) 0.2 % 11/02/24 17:40 Baso % (Auto) 0.4 % 11/02/24 17:40 Neut # (Auto) 21.17 10^3/uL (1.8-7.7) H 11/02/24 17:40 Lymph # (Auto) 1.8 10^3/uL (0.8-4.8) 11/02/24 17:40 [place] # (Auto) 1.8 10^3/uL (0.2-0.9) H 11/02/24 17:40 Eos # (Auto) 0.1 10^3/uL (0.0-0.8) 11/02/24 17:40 Baso # (Auto) 0.1 10^3/uL (0.0-0.1) 11/02/24 17:40 Nucleated RBC % (auto) 0 % 11/02/24 17:40 Nucleated RBCs # 0.0 /100WBC 11/02/24 17:40 Sodium 139 mmol/L (136-145) 11/02/24 17:40 Potassium 3.9 mmol/L (3.5-5.1) 11/02/24 17:40 Chloride 103 mmol/L (98-107) 11/02/24 17:40 Carbon Dioxide 24 mmol/L (22-29) 11/02/24 17:40 Anion Gap 15.9 (5-19) 11/02/24 17:40 BUN 12 mg/dL (6-20) 11/02/24 17:40 Creatinine 0.8 mg/dL (0.5-0.9) 11/02/24 17:40 GFR Calculation 75.9 mL/min (90-130) L 11/02/24 17:40 Glucose 102 mg/dL (65-115) 11/02/24 17:40 Calculated Osmolality 288 mOsm/kg (285-295) 11/02/24 17:40 Lactic Acid 2.1 mmol/L (0.5-2.2) 11/02/24 17:40 Calcium 9.3 mg/dL (8.5-10.5) 11/02/24 17:40 Total Bilirubin 0.5 mg/dL (0.15-1.2) 11/02/24 17:40 AST 13 U/L (0-32) 11/02/24 17:40 ALT 9 U/L (0-33) 11/02/24 17:40 Alkaline Phosphatase 79 U/L (35-105) 11/02/24 17:40 Total Protein 7.1 g/dL (6.6-8.7) 11/02/24 17:40 Albumin 4.4 g/dL (3.5-5.2) 11/02/24 17:40 Globulin 2.7 g/dL (1.3-4.6) 11/02/24 17:40 HCG, Qual Negative (Negative) 11/02/24 17:40 Urine Color Yellow (Yellow) 11/02/24 19: Urine Appearance Clear (CLEAR) 11/02/24 19: Urine pH 6.5 (5-7) 11/02/24 19: Ur Specific [place] 1.020 (1.005-1.030) 11/02/24 19: Urine Protein Trace (Negative) 11/02/24 19: Urine Glucose (UA) Norm (Normal) 11/02/24: Urine Ketones Negative (Negative) 11/02/24: Urine Blood 2+ (Negative) H 11/02/24 19: Urine Nitrate Negative (Negative) 11/02/24: Urine Bilirubin 1+ (Negative) H 11/02/24: Urine Urobilinogen 1 mg/dL (Negative) H 11/02/24 19: Ur Leukocyte Esterase Trace (Negative) H 11/02/24 19: Urine RBC 0-2 /hpf (0-2) 11/02/24 19: Urine WBC 0-5 /hpf (0-5) 11/02/24 19: Ur Squamous Epith Cells 0-5 /hpf (0-5) 11/02/24 19: Amorphous Sediment Not Reportable 11/02/24 19: Urine Bacteria Trace /hpf (NONE) 11/02/24 19: Hyaline Casts 3.71 /lpf 11/02/24 19: Urine Mucus 4+ /hpf 11/02/24 19:29 XR interpretation done by ED provider, pending radiology final review ED provider radiology interpretation(s): Chest x-ray no acute findings. Discharge Plan Discharge Patient Disposition: Left Against Medical Advice Clinical Impression: Fever with leukocytosis and leukocyte count greater than or equal to 20,000, Unspecified personality disorder Condition: Stable Prescriptions: No Action fluoxetine 60 mg tablet 60 mg PO QDAY Qty: 90 3RF Rx Instructions: take with 20mg tablet. fluoxetine 20 mg tablet 20 mg PO DAILY Qty: 90 3RF Rx Instructions: take with 60mg tablet. quetiapine 50 mg tablet 50 mg PO BEDTIME 30 Days Qty: 30 5RF Rx Instructions: may take a whole or half tab po hs ropinirole 3 mg tablet 3 mg PO BEDTIME 30 Days Qty: 30 5RF pantoprazole 40 mg tablet,delayed release (DR/EC) See Rx Instructions .ROUTE .COMPLEX Qty: 180 0RF Dose Instruction: TAKE ONE TABLET BY MOUTH TWICE DAILY Rx Instructions: TAKE ONE TABLET BY MOUTH TWICE DAILY albuterol sulfate [Ventolin HFA] 90 mcg/actuation HFA aerosol inhaler See Rx Instructions .ROUTE .COMPLEX Qty: 18 2RF Dose Instruction: INHALE TWO PUFFS BY MOUTH EVERY 6 HOURS NEEDED SHORTNESS OF BREATH OR WHEEZING Rx Instructions: INHALE TWO PUFFS BY MOUTH EVERY 6 HOURS NEEDED SHORTNESS OF BREATH OR WHEEZING ondansetron 8 mg tablet,disintegrating See Rx Instructions .ROUTE .COMPLEX Qty: 30 0RF Dose Instruction: DISSOLVE ONE TABLET ON TOP OF THE TONGUE WHERE IT WILL DISSOLVE THEN SWALLOW EVERY 8 HOURS NEEDED FOR NAUSEA AND VOMITING Rx Instructions: DISSOLVE ONE TABLET ON TOP OF THE TONGUE WHERE IT WILL DISSOLVE THEN SWALLOW EVERY 8 HOURS NEEDED FOR NAUSEA AND VOMITING hydroxyzine HCl 25 mg tablet 25 mg PO BID PRN (Reason: itching) Qty: 60 1RF Referrals: Sylvia Salcedo ADVICE NURSE [Primary Care Provider] - Print Language: Argentine Coding Level of Care Code ED Emotional Support Teacher for Josr Scott
[2024-11-02 19:48] LABS: Lactic Sepsis W/Reflex 2.1 mmol/L (0.5-2.2)
[2024-11-02 19:48] LABS: Add Urine Microscopic? NO
[2024-11-02 19:52] LABS: Bacteria Urine Trace /hpf; Hyaline Casts Urine 3.71 /lpf; RBC Urine 0-2 /hpf (0-2); Squamous Epithelial Cell Urine 0-5 /hpf (0-5); Universal Test for UA Present (0); WBC Urine 0-5 /hpf (0-5)
[2024-11-02 19:55] LABS: Reflex Lactate Order REFLEX LACTIC ORDERD
[2024-11-02 20:03] LABS: Bilirubin Urine 1+ (Negative); Blood Urine 2+ (Negative); Glucose Urine UA Norm (Normal); Ketones Urine Negative (Negative); Leukocyte Esterase Urine Trace (Negative); Nitrate Urine Negative (Negative); Protein Urine Trace (Negative); Urine Appearance Clear (CLEAR); Urine Color Yellow (Yellow); Urobilinogen Urine 1 mg/dL (Negative); pH Urine 6.5 (5-7)
[2024-11-02 20:04] LABS: Charge for UA Resulting for Rev; Mucus Urine 4+ /hpf
== END 2024-11-02 19:45 | disposition left against medical advice (07) ==
PROVIDERS: Emergency Provider Family Medicine; PCP Nurse Practitioner Family
DX: R50.9 Fever, unspecified (principal); D72.829 Elevated white blood cell count, unspecified; F60.9 Personality disorder, unspecified
CPT/HCPCS: 36415; 71045; 80053; 81003; 83605; 84703; 85025; 87040; 99284